=== PATIENT | male | born 1990 | race Hispanic/Latino ===

== ENCOUNTER → 2022-10-27 09:07 | Outpatient (CLI) | payer OTHER, SELFPAY ==
--- NOTE | ~2022-10-27 | XR_ITS ---
EXAMINATION:XR cervical spine 4-5V DATE: 10/27/2022 09:28 INDICATION: Neck pain TECHNIQUE: AP, lateral, lateral swimmers and odontoid views of the cervical spine are provided. COMPARISON: None FINDINGS: There is straightening of the cervical spine which can be positional or due to muscular spa sm. Alignment is normal. The odontoid process is intact. No fracture is identified. Vertebral body he ights and disk spaces are normal. Prevertebral soft tissues are normal. IMPRESSION: 1. No acute osseous abnormality. Reviewed, dictated and finalized at location B.
== END ==
PROVIDERS: PCP Emergency Medicine; Visit Provider Emergency Medicine
DX: R20.2 Paresthesia of skin (principal)
CPT/HCPCS: 72050

== ENCOUNTER 2023-09-04 16:29 | Emergency (ER) | payer OTHER, SELFPAY ==
--- NOTE | ~2023-09-04 | XR_ITS ---
EXAMINATION: XR tibia fibula RT 2V DATE: 09/04/2023 18:37 INDICATION: Right lower leg injury. TECHNIQUE: 2 views of right tibia and fibula on 3 radiographs were obtained. COMPARISON: Radiographs at 4:50 PM FINDINGS: Bone alignment is normal. No fracture. Joint spaces are normal. There is soft tissue swelli ng anterior to the tibial diaphysis. IMPRESSION: 1. No fracture. Reviewed, dictated and finalized at location E. IMPRESSION: 1. No fracture.
--- NOTE | ~2023-09-04 | XR_ITS ---
XR tibia fibula RT 2V 09/04/2023 16:57 Indication: Right leg deformity Procedure: 3 views right tibia/fibula Comparison: No prior studies for comparison. Findings: No fracture, subluxation or dislocation. There is anatomic alignment. No focal soft tissue abnormality. No foreign bodies. Impression: 1: No acute bone or joint abnormality. Reviewed, dictated and finalized at location A. Impression: 1: No acute bone or joint abnormality.
[2023-09-04 16:35] VITALS: BP 166/114; PULSE 118; RESP 20; TEMP 36.9; O2SAT 100
[2023-09-04] MEDS: ONDANSETRON INJ 4 MG/2 ML VIAL IV PUSH (16:46)
[2023-09-04] MEDS: MORPHINE SULFATE (*CRX) 4 MG/ML INJ IV PUSH ×2 (16:46→19:33)
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
[2023-09-04 17:07] LABS: Basophils Absolute Auto 0.1 K/mm3 (0.0-0.1); Basophils Percent Auto 0.6 % (0.2-1.2); Eosinophils Percent Auto 0.4 % (0-4.4); Hematocrit 49.4 % (42.0-52.0); Hemoglobin 17.2 g/dL (14.0-18.0); Immature Granulocyte Absolute 0.03 K/mm3 (0.00-0.031); Immature Granulocyte Percent A 0.3 % (0-0.5); Lymphocytes Absolute Auto 3.16 K/mm3 (0.9-3.2); Mean Corpuscular HGB Conc 34.8 g/dl (32-36); Mean Corpuscular Hemoglobin 31.6 pg (26-34); Mean Corpuscular Volume 90.6 fl (80-100); Mean Platelet Volume 9.1 fl (7.4-10.4); Monocytes Absolute Auto 0.7 K/mm3 (0.1-0.6); Monocytes Percent Auto 6.6 % (2.6-8.5); Neutrophils Absolute Auto 6.9 K/mm3 (1.3-6.7); Neutrophils Percent Auto 63.1 % (45.5-73.1); Platelet Count Result 306 k/mm3 (150-375); Red Blood Count 5.45 M/mm3 (4.6-6.20); Red Cell Distribution Width 12.6 % (11.5-14.5); White Blood Count 10.9 K/mm3 (4.5-10.0)
[2023-09-04 17:08] VITALS: BP 153/101; PULSE 98; RESP 14; TEMP 36.6; O2SAT 99
[2023-09-04 17:24] LABS: Lactic Acid Reflex 3.5 mmol/L (0.7-2.0)
[2023-09-04 17:25] LABS: Ethanol 275 mg/dL (<10)
[2023-09-04 17:26] LABS: Prothrombin Time 13.2 Seconds (11.1-14.7)
[2023-09-04 17:27] LABS: Partial Thromboplastin Time 28.2 Seconds (22.3-36.8)
[2023-09-04 17:28] LABS: Anion Gap 18 mmol/L (4-12); Blood Urea Nitrogen 10 mg/dL (9-20); Calcium 9.7 mg/dL (8.4-10.2); Carbon Dioxide 22 mmol/L (22-30); Chloride 104 mmol/L (98-107); Creatine Kinase 290 U/L (55-170); Estimated CRCL calculation 84 ml/min; Estimated Glomerular Filt Rate > 60; Glucose 120 mg/dL (65-110); Potassium 3.8 mmol/L (3.4-5.0); Sodium 144 mmol/L (137-145)
[2023-09-04 17:33] VITALS: BP 124/52; PULSE 107; RESP 23; TEMP 36.6; O2SAT 97
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
--- NOTE | 2023-09-04 18:27 | PC.NURSE ---
Dr. Stafford drained hematoma to right ponce. Pt tolerated well. Right lower leg elevated on x3 pillows
[2023-09-04 19:31] VITALS: BP 138/104
[2023-09-04 20:03] LABS: Reflex Lactic Acid Yes or No Add Lactic
[2023-09-04 20:31] VITALS: BP 120/86; PULSE 103; RESP 21; O2SAT 100
--- NOTE | 2023-09-04 20:40 | PM.IMHP ---
H&P: HPI History of Present Illness Date/Time: 09/04/23 20:40 Meds Home Medications and Allergies Allergies Allergy/AdvReac Type Severity Reaction Status Date / Time No Known Allergies Allergy Unverified 01/04/21 16:29 Vital Signs Vital Signs - 24 hr 09/04/23 16:35 09/04/23 17:08 09/04/23 17:33 Temperature 98.5 F 97.9 F 97.8 F Pulse Rate 118 H 98 107 H Respiratory Rate 20 14 23 H Blood Pressure 166/114 H 153/101 H 124/52 L Pulse Oximetry 100 99 97 Oxygen Delivery Room Air H&P: Results Labs Labs: Short CBC 09/04/23 Range/Units 16:57 WBC 10.9 H (4.5-10.0) K/mm3 Hgb 17.2 (14.0-18.0) g/dL Hct 49.4 (42.0-52.0) % Plt Count 306 (150-375) k/mm3 BMP 09/04/23 16:57 Sodium 144 Potassium 3.8 Chloride 104 Carbon Dioxide 22 BUN 10 Creatinine 1.20 Glucose 120 H Calcium 9.7 Cardiac Enzymes 09/04/23 09/04/23 Range/Units 16:57 16:57 Total Creatine Kinase 290 H Cancelled (55-170) U/L
[2023-09-04 21:05] LABS: Lactic Acid 2.1 mmol/L (0.7-2.0)
--- NOTE | 2023-09-04 21:08 | PC.NURSE ---
After calling report on patient, this RN went to medicate patient and send him to 3rd med/surg. Patient stated his mother left and he had someone waiting outside to pick him up and he wanted to leave. This RN made Dr. Fox aware.
--- NOTE | 2023-09-04 21:22 | PC.NURSE ---
This RN, Dr. Fox, and EDT Arlette present in the room while Dr. Fox explained to patient the benefits of staying and risks of signing out AMA. Patient states he does not care and will take care of the wounded leg at home. States he will come back if the pain worsens or the wound has any signs of infection. Patient signed AMA form and was able to walk out of this ED.
== END 2023-09-04 21:28 | disposition left against medical advice (07) ==
LOC: ANHED 18:35 → ANH3MEDSUR 21:06
PROVIDERS: Emergency Provider Emergency Medicine; PCP Emergency Medicine
DX: S80.11XA Contusion of right lower leg, initial encounter (principal); S84.01XA Injury of tibial nerve at lower leg level, right leg, initial encounter; W21.11XA Struck by baseball bat, initial encounter
CPT/HCPCS: 10160; 36415; 73590; 80048; 80307; 82550; 83605; 85025; 85610; 85730; 96374; 96375; 96376; 99284; J2270; J2405

== ENCOUNTER 2023-09-06 16:01 | Observation (INO) | payer OTHER, SELFPAY ==
[2023-09-06] VITALS (14 sets, daily range): BP systolic 122–158; BP diastolic 73–101; PULSE 101–134; RESP 19–35; TEMP 37.1; O2SAT 98–100
--- NOTE | ~2023-09-06 | MR_ITS ---
EXAMINATION: MR lower leg RT wo/w con DATE: 09/07/2023 14:59 INDICATION: Right lower leg hematoma TECHNIQUE: Magnetic resonance imaging (MRI) of the right lower leg was performed without and with 17 mL Multihance intravenous contrast. Sequences included axial T1-weighted FS FSE, axial, sagittal and coronal T1-weighted FSE and fluid sensitive FSE STIR and postcontrast T1-weighted FS FSE. The contral ateral left lower leg is included on the coronal imaging. COMPARISON: Radiographs dated 09/04/23 FINDINGS: There is a 4.6 x 2.6 x 6.9 cm complex loculated nonenhancing fluid collection positioned along the an teromedial margin of the mid tibial diaphysis. There is heterogeneous increased internal T1 signal co nsistent with blood and reported history of hematoma. Small amount of surrounding subcutaneous edema. Bone alignment is normal. Normal marrow signal throughout with no fracture, reactive edema or pathol ogic marrow replacing process. There is normal and symmetric muscle bulk and signal throughout both c gill. IMPRESSION: 1. 6.9 x 4.6 x 2.6 cm subcutaneous hematoma along the anteromedial margin of the right mid tibial daria physis. Reviewed, dictated and finalized at location B. IMPRESSION: 1. 6.9 x 4.6 x 2.6 cm subcutaneous hematoma along the anteromedial margin of th e right mid tibial diaphysis.
--- NOTE | ~2023-09-06 | XR_ITS ---
[[id number] ] INDICATION: Chest pain TECHNIQUE: Frontal projection of the upper left ribs, frontal projection of the lower left ribs, obli que projection of all the left ribs, frontal inspiratory chest x-ray for interpretation. FINDINGS: There are no displaced rib fractures identified. There are no soft tissue abnormality see n. The lungs are clear. IMPRESSION: 1:No acute displaced rib fractures. Reviewed, dictated and finalized at location A.
--- NOTE | ~2023-09-06 | CT_ITS ---
EXAMINATION: CT BRAIN W/O DATE: 09/06/2023 16:50 INDICATION: Head injury after fall TECHNIQUE: Computed tomography (CT) of the head was performed without intravenous contrast. The dose- length product was 1362.00 mGy-cm. Automated exposure control and iterative reconstruction technique were employed. COMPARISON: No prior studies for comparison. FINDINGS: Normal brain parenchymal volume for age. Normal dhaliwal-white differentiation. No acute intrac ranial hemorrhage, infarction, mass or mass effect. No ventriculomegaly or midline shift. Midline sagittal images demonstrate a normal corpus callosum, c raniovertebral junction and sella turcica. Basilar cisterns are patent. Paranasal sinuses and mastoids are pneumatized. No depressed skull fractures. IMPRESSION: 1. No acute intracranial abnormality. Reviewed, dictated and finalized at location A.
--- NOTE | ~2023-09-06 | XR_ITS ---
EXAMINATION: XR hip RT 2V w AP pelvis DATE: 09/08/2023 08:36 INDICATION: Right hip pain post fall TECHNIQUE: Anteroposterior view of the pelvis and anteroposterior and frog-leg lateral views of the r ight hip were obtained. COMPARISON: None. FINDINGS: Alignment is normal. No fracture or suspected avascular necrosis. Bilateral hip and sacroiliac joint spaces appear normal. There is bilateral decreased femoral head/neck offset which could predispose to wards cam-type femoral acetabular impingement. Soft tissues are unremarkable. IMPRESSION: 1. No acute osseous abnormality at the right hip or pelvis. Reviewed, dictated and finalized at location A.
--- NOTE | ~2023-09-06 | CT_ITS ---
EXAMINATION: CT cervical spine wo con DATE: 09/06/2023 16:50 INDICATION: Head injury. TECHNIQUE: Computed tomography (CT) of the cervical spine was performed without intravenous contrast. Automated exposure control and iterative reconstruction technique were employed. The dose-length pro duct was 1057.92 mGy-cm. COMPARISON: None FINDINGS: There is 3 degrees dextrocurvature of cervical spine. Vertebral body heights and interverte bral disc heights are normal. The following disc levels are specifically discussed: C2-C3: There is no uncovertebral joint osteoarthritis. There is mild bilateral facet joint osteoarthr itis. There is no neural foraminal stenosis. There is no central canal stenosis. C3-C4: There is mild left uncovertebral joint osteoarthritis. There is no facet joint osteoarthritis. There is mild left neural foraminal stenosis. There is no central canal stenosis. C4-C5: There is no uncovertebral joint osteoarthritis. There is no facet joint osteoarthritis. There is no neural foraminal stenosis. There is no central canal stenosis. C5-C6: There is no uncovertebral joint osteoarthritis. There is no facet joint osteoarthritis. There is no neural foraminal stenosis. There is no central canal stenosis. C6-C7: There is no uncovertebral joint osteoarthritis. There is mild bilateral facet joint osteoarthr itis. There is no neural foraminal stenosis. There is no central canal stenosis. C7-T1: There is no uncovertebral joint osteoarthritis. There is severe bilateral facet joint osteoart hritis. There is mild bilateral neural foraminal stenosis. There is no central canal stenosis. IMPRESSION: 1. No fracture. 2. Mild cervical spondylosis. Reviewed, dictated and finalized at location A.
--- NOTE | ~2023-09-06 | XR_ITS ---
EXAMINATION: XR tibia fibula LT 2V DATE: 09/06/2023 16:52 INDICATION: Left lower leg pain. Fall. TECHNIQUE: 2 views of left tibia and fibula on 3 radiographs were obtained. COMPARISON: None. FINDINGS: Bone alignment is normal. No fracture. Joint spaces are normal. No knee joint effusion. The re is soft tissue swelling of the ponce. IMPRESSION: 1. No fracture. Reviewed, dictated and finalized at location A. IMPRESSION: 1. No fracture.
--- NOTE | 2023-09-06 16:20 | ED.FALL ---
HPI - Fall General Chief Complaint: Fall <Tyrese Welsh APRN - Last Filed: 09/06/23 18:53> Stated Complaint: R. arm numbness <Tyrese Welsh APRN - Last Filed: 09/06/23 18:53> Time Seen by Provider: 09/06/23 16:15 <Tyrese Welsh APRN - Last Filed: 09/06/23 18:53> History of Present Illness HPI Narrative: 33-year-old male presents to the emergency room for evaluation of injuries sustained in fall. Patient was seen yesterday here for right leg injury. Patient states that he fell down 3 steps yesterday striking his right ponce on a stair. Patient was reporting pain in the ponce with numbness in his foot. Per dL note, imaging of the right ponce showed no acute fracture. Orthopedics is at the bedside to perform a hematoma drainage. Patient left AMA prior to completion of evaluation and treatment Patient presents today with unresolved pain of the right ponce, unable to use his right leg. Pain in his right forearm. Numbness and tingling in his right hand. It is clearly intoxicated. Patient states that he has had at least a 12 pack of beer prior to arrival. Patient states that he fell again today striking his face. Patient denies any LOC.. <Tyrese Welsh APRN - Last Filed: 09/06/23 18:53> Related Data Home Medications: Home Medications Medication Instructions Recorded Confirmed Biktarvy 1 tablet PO DAILY 09/07/23 09/07/23 atorvastatin 10 mg tablet 10 mg PO DAILY 09/07/23 09/07/23 <Tyrese Welsh APRN - Last Filed: 09/06/23 18:53> Allergies/Adverse Reactions: Allergies Allergy/AdvReac Type Severity Reaction Status Date / Time No Known Allergies Allergy Verified 09/07/23 00:24 <Tyrese Welsh APRN - Last Filed: 09/06/23 18:53> Review of Systems Review of Systems: CONSTITUTIONAL: Denies fever, chills, or sweats. EYES: Denies visual changes, redness, or discharge. ENT: Denies rhinorrhea, congestion, sore throat, or otalgia. CARDIOVASCULAR: Denies chest pain, palpitations, or edema. RESPIRATORY: Denies cough or dyspnea. GASTROINTESTINAL: Denies abdominal pain, nausea, vomiting, or diarrhea. GENITOURINARY: Denies dysuria or hematuria. SKIN: Hematoma to right ponce with significant surrounding ecchymosis MUSCULOSKELETAL: Denies back pain, joint pain, or myalgia. NEUROLOGIC: Reports numbness and tingling right hand PSYCHIATRIC: Denies anxiety or depression. <Tyrese Welsh APRN - Last Filed: 09/06/23 18:53> [facility] Social History Social History: Social History Smoking packs per day: 1 Smoking cigarettes per day: 20.0 Years smoked: 1 Smoking pack-years: 1.00 Smoking status: Former smoker Tobacco type: cigarettes Alcohol intake: current Drinks per week: 60 Substance use type: marijuana Last use: 09/06/2023 Do You Feel Safe in your Home?: Yes Lack of Transportation: No Lack of Food: Never True Current Housing: I Have Housing Concerned About Future Housing: No Difficulty Paying Gas/Electric Bills: No Difficulty Paying for Meds: No Currently Unemployed: No Education: High School Diploma/GED Difficulty w/ Childcare or Family Care: No Spiritual care concerns: No <Tyrese eWlsh, FACULTY MEMBER - Last Filed: 09/06/23 18:53> Exam Narrative: GENERAL: Patient is a poor historian, smells of ETOH and appears clinically intoxicated HEAD: Normocephalic, atraumatic. EYES: Conjunctivae normal, PERRLA and EOMI. ENT: External nose normal, Nares clear, no rhinorrhea or epistaxis. Mucous membranes moist. Oropharynx without tonsillar hypertrophy exudate or other lesions. External ears normal, bilateral TMs normal bilaterally CHEST: Clear to auscultation. Labored breathing. +TTP left anterior chest wall HEART: Regular rhythm tachycardia BACK: No midline cervical/thoracic/lumbar tenderness, step-offs, bony abnormality; FROM EXTREMITIES: RLE: obvious large hematoma anterior lower leg wi
[2023-09-06] MEDS: MORPHINE SULFATE (*CRX) 4 MG/ML INJ IV PUSH (16:33)
[2023-09-06 16:34] LABS: Basophils Absolute Auto 0.1 K/mm3 (0.0-0.1); Basophils Percent Auto 0.7 % (0.2-1.2); Eosinophils Percent Auto 0.1 % (0-4.4); Hemoglobin 16.2 g/dL (14.0-18.0); Immature Granulocyte Absolute 0.01 K/mm3 (0.00-0.031); Immature Granulocyte Percent A 0.1 % (0-0.5); Lymphocytes Absolute Auto 4.05 K/mm3 (0.9-3.2); Lymphocytes Percent Auto 48.7 % (18.3-44.2); Mean Corpuscular Volume 88.8 fl (80-100); Monocytes Absolute Auto 0.7 K/mm3 (0.1-0.6); Monocytes Percent Auto 7.9 % (2.6-8.5); Neutrophils Absolute Auto 3.5 K/mm3 (1.3-6.7); Neutrophils Percent Auto 42.5 % (45.5-73.1); Platelet Count Result 289 k/mm3 (150-375); Red Blood Count 5.07 M/mm3 (4.6-6.20); Red Cell Distribution Width 12.6 % (11.5-14.5); White Blood Count 8.3 K/mm3 (4.5-10.0)
[2023-09-06 16:44] LABS: Ethanol 233 mg/dL (<10)
[2023-09-06 16:51] LABS: Alanine Aminotransferase 39 U/L (6-50); Albumin Level 5.3 g/dL (3.5-5.1); Alkaline Phosphatase 91 U/L (38-126); Anion Gap 17 mmol/L (4-12); Aspartate Amino Transferase 53 U/L (17-59); Bilirubin,Total 0.8 mg/dL (0.2-1.3); Blood Urea Nitrogen 9 mg/dL (9-20); Calcium 9.3 mg/dL (8.4-10.2); Carbon Dioxide 18 mmol/L (22-30); Chloride 107 mmol/L (98-107); Estimated Glomerular Filt Rate > 60; Glucose 111 mg/dL (65-110); Potassium 4.1 mmol/L (3.4-5.0); Sodium 142 mmol/L (137-145)
[2023-09-06] MEDS: SODIUM CHLORIDE 0.9% IV 1,000 ML 999 ML IV CONT ×2 (16:52→19:09)
[2023-09-06] MEDS: ONDANSETRON INJ 4 MG/2 ML VIAL IV PUSH (16:52)
[2023-09-06] MEDS: THIAMINE HCL 200 MG/2 ML VIAL 100 MG IV PUSH (17:42)
[2023-09-06] MEDS: SODIUM CHLORIDE 0.9% IV 1,000 ML 150 ML IV CONT (18:07)
[2023-09-06] MEDS: fentaNYL CITRATE INJ (*CRX) 100 MCG/2 ML VIAL (18:08)
--- NOTE | 2023-09-06 18:08 | PC.NURSE ---
verbal orders given by Candido Keith NP, at 1800 for 50mcg fentanyl IVP to be given.
--- NOTE | 2023-09-06 18:15 | ECG_ITS ---
SEE SCANNED COPY FOR CONFIRMED REPORT MTDD
--- NOTE | 2023-09-06 18:24 | PC.NURSE ---
While BEHAVIORAL SPECIALIST and this RN at bedside at 1800, pt began complaining of L sided chest pain. EKG ordered and performed.
[2023-09-06] MEDS: LORazepam INJ (*CRX) 2 MG/ML VIAL 1 MG IV PUSH (18:34)
[2023-09-06 19:11] LABS: Troponin I < 0.012 ng/mL (0.000-0.034)
[2023-09-06 19:37] LABS: Lactic Acid Reflex 2.1 mmol/L (0.7-2.0)
[2023-09-06 20:35] LABS: Anion Gap 8 mmol/L (4-12); Blood Urea Nitrogen 8 mg/dL (9-20); Calcium 7.3 mg/dL (8.4-10.2); Carbon Dioxide 21 mmol/L (22-30); Chloride 112 mmol/L (98-107); Estimated Glomerular Filt Rate > 60; Glucose 98 mg/dL (65-110); Potassium 3.8 mmol/L (3.4-5.0); Sodium 141 mmol/L (137-145)
[2023-09-06 20:43] LABS: Amphetamine Screen Urine Negative (Negative); Barbiturate Screen Urine Negative (Negative); Benzodiazepines Screen Urine Negative (Negative); Cannabinoid Screen Urine Positive (Negative); Cocaine Screen Urine Negative (Negative); Methadone Screen Urine Negative (Negative); Opiate Screen Urine Positive (Negative); Phencyclidine Screen Urine Negative (Negative)
[2023-09-06 20:46] LABS: Appearance Urine Clear (Clear); Bacteria Urine None Seen /hpf; Bilirubin Urine Negative (Negative); Blood Urine Negative (Negative); Color Urine Yellow (Yellow); Glucose Urine UA Negative (Negative); Ketones Urine 1+ mg/dL (Negative); Leukocyte Esterase Ur Negative LEU/UL (Negative); Nitrate Urine Negative (Negative); Non Pathogenic Casts 0-2; Protein Urine Trace mg/dL (Negative); RBC Urine 0-2 /hpf (0-2); Specific Grav Ur 1.019 (1.001-1.035); Squamous Epithelial Cell Urine None Seen /hpf (Few); WBC Urine 0-5 /hpf (0-3)
[2023-09-06 20:58] LABS: Add Urine Microscopic? YES
[2023-09-06 22:26] LABS: Reflex Lactic Acid Yes or No Add Lactic
--- NOTE | 2023-09-06 23:07 | PC.NURSE ---
pt care and report given to PAWEL Koehler. all questions answered.
[2023-09-06 23:19] LABS: Lactic Acid 2.7 mmol/L (0.7-2.0)
--- NOTE | 2023-09-06 23:41 | PC.NURSE ---
Pt given sandwich, pretzels, pudding, and water.
[2023-09-07] VITALS: BP 160/90; PULSE 111; RESP 19; TEMP 37.1; O2SAT 99; BMI 30.7
--- NOTE | 2023-09-07 00:08 | ADMGEN ---
This patient, Jose Angel Marie, was admitted to [facility] Surg Room 316-01. Patient/family oriented to hospital policies and general routines including ID bracelet, bed and alarms, visiting hours, pain management, procedures, bathroom and other care routines, personal items, smoking policy, room service/diet, and visiting hours. Information on how to activate the Rapid Response Team has been discussed. Patient/Family are encouraged to report perceived risks to care and to ask questions if they do not understand what they are told or what they should do.
[2023-09-07] MEDS: KETOROLAC 30 MG/ML VIAL (*BKC) IV PUSH (00:09)
[2023-09-07] MEDS: SODIUM CHLORIDE 0.9% IV 1,000 ML 125 ML IV CONT ×2 (00:11→09:20)
[2023-09-07 00:12] VITALS: BMI 30.8
[2023-09-07] MEDS: chlordiazePOXIDE (*CRX) 25 MG CAPSULE 50 MG PO ×4 (05:16→21:55)
[2023-09-07 05:49] VITALS: BP 151/81; PULSE 85; RESP 14; TEMP 36.5; O2SAT 99
[2023-09-07 05:51] LABS: Glucose Point of Care 87 mg/dl (65-105)
[2023-09-07] MEDS: ATORVASTATIN 10 MG TABLET PO (09:10)
[2023-09-07] MEDS: THIAMINE HCL 200 MG/2 ML VIAL 100 MG IV PUSH (09:11)
--- NOTE | 2023-09-07 11:13 | PM.IMPN ---
Subjective Date/time seen: 09/07/23 11:13 Objective Data Vital Signs Vital Signs: Vital Signs - 24 hr 09/06/23 16:04 09/06/23 16:34 09/06/23 17:00 Temperature 98.8 F Pulse Rate 134 H 110 H 104 H Respiratory Rate 28 H 29 H 28 H Blood Pressure 137/101 H 158/92 H 126/95 H Pulse Oximetry 100 100 100 Oxygen Delivery Room Air Room Air 09/06/23 17:30 09/06/23 17:45 09/06/23 18:16 Temperature Pulse Rate 106 H 115 H 115 H Respiratory Rate 27 H 27 H 35 H Blood Pressure 141/88 H 134/82 145/96 H Pulse Oximetry 99 98 100 Oxygen Delivery 09/06/23 18:31 09/06/23 18:46 09/06/23 19:01 Temperature Pulse Rate 113 H 120 H 124 H Respiratory Rate 34 H 26 H 20 Blood Pressure 154/93 H 129/78 122/73 Pulse Oximetry 100 98 99 Oxygen Delivery 09/06/23 20:46 09/06/23 21:01 09/06/23 21:46 Temperature Pulse Rate 117 H 109 H 111 H Respiratory Rate 23 H 21 H 20 Blood Pressure 122/81 130/85 135/91 H Pulse Oximetry 100 100 100 Oxygen Delivery 09/06/23 22:01 09/06/23 23:24 09/07/23 00:12 Temperature Pulse Rate 101 H 106 H Respiratory Rate 19 20 Blood Pressure 156/94 H 138/95 H Pulse Oximetry 100 99 Oxygen Delivery Room Air 09/07/23 00:00 09/07/23 05:49 Temperature 98.7 F 97.7 F Pulse Rate 111 H 85 Respiratory Rate 19 14 Blood Pressure 160/90 H 151/81 H Pulse Oximetry 99 99 Oxygen Delivery Intake/Output Intake/Output: Intake & Output 09/04/23 09/05/23 09/06/23 09/07/23 23:59 23:59 23:59 23:59 Intake Total 3000 1740 Balance 3000 1740 Meds/Results Medications: Active Medications Generic Name Dose Route Start Last Admin Trade Name Freq PRN Reason Stop Dose Admin Atorvastatin Calcium 10 mg 09/07/23 09:00 09/07/23 09:10 Atorvastatin 10 Mg Tablet PO 10 mg DAILY SAM Administration Chlordiazepoxide HCl 50 mg 09/07/23 06:00 09/07/23 05:16 Chlordiazepoxide (*Crx) 25 Mg Capsule PO 50 mg Q6HR SAM Administration Hydromorphone HCl 0.5 mg 09/06/23 23:08 Hydromorphone Hcl Inj (*Crx) 1 Mg/Ml Syr IV PUSH Q4H PRN Pain Rated 7-10 Sodium Chloride 1,000 mls @ 125 mls/hr 09/06/23 23:10 09/07/23 09:20 Normal Saline Iv IV CONT 125 mls/hr .Q8H SAM Administration Dextrose/Sodium Chloride 1,000 mls @ 125 mls/hr 09/07/23 01:40 Dextrose 5% Sodium Chloride 0.45% IV CONT .Q8H SAM Ketorolac Tromethamine 30 mg 09/06/23 23:08 09/07/23 00:09 Ketorolac 30 Mg/Ml Vial (*Bkc) IV PUSH 09/11/23 23:07 30 mg Q6H PRN Administration Pain Rated 4-6 Lorazepam 2 mg 09/07/23 01:38 Lorazepam Inj (*Crx) 2 Mg/Ml Vial IV PUSH Q4H PRN CIWA 8-15 Nonform Biktarvy ( 1 tablet 09/07/23 09:00 09/07/23 10:05 Bictegravir/ PO 10/07/23 08:59 1 tablet Emtricitabine/ DAILY SAM Administration Tenofovir) Tablet) Ondansetron HCl 4 mg 09/06/23 23:08 Ondansetron Inj 4 Mg/2 Ml Vial IV PUSH Q4H PRN Nausea Ondansetron HCl 4 mg 09/07/23 01:38 Ondansetron Inj 4 Mg/2 Ml Vial IV PUSH Q6H PRN Nausea And Vomiting Thiamine HCl 100 mg 09/07/23 09:00 09/07/23 09:11 Thiamine Hcl 200 Mg/2 Ml Vial IV PUSH 100 mg DAILY SAM Administration Radiology Results: ITS Impressions Head CT 09/06/23 16:51 IMPRESSION: 1. No acute intracranial abnormality. Cervical Spine CT 09/06/23 16:52 IMPRESSION: 1. No fracture. 2. Mild cervical spondylosis. Tibia/Fibula X-Ray 09/06/23 16:55 IMPRESSION: 1. No fracture. Ribs w/Chest X-Ray 09/06/23 19:23 IMPRESSION: 1:No acute displaced rib fractures. Labs Labs: Laboratory Results - last 24 hr 09/06/23 09/06/23 09/06/23 16:26 16:28 19:24 WBC 8.3 RBC 5.07 Hgb 16.2 Hct 45.0 MCV 88.8 MCH 32.0 MCHC 36.0 RDW 12.6 Plt Count 289 MPV 9.0 Immature Gran % (Auto) 0.1 Neut % (Auto) 42.5 L Lymph % (Auto) 48.7 H [place] % (Auto) 7.9 Eos % (Auto) 0.1 Baso % (Auto) 0.7
--- NOTE | 2023-09-07 11:30 | PM.CNOR ---
Assessment and Plan Assessment and plan (1) Injury of right tibial nerve: Code(s): S84.01XA - Injury of tibial nerve at lower leg level, right leg, initial encounter Status: Acute Assessment and Plan: Patient has contusion of his tibia with a hematoma. He also has an injury to his tibial nerve. The tibial nerve appears to be getting little better based on Dr. Yohan dee. However he is unable bear weight according to the patient. He is also undergoing alcohol withdrawal this time. Will get and recommended an MRI scan for an. Will follow along discussed. (2) Hematoma of right lower leg: Code(s): S80.11XA - Contusion of right lower leg, initial encounter Status: Acute History of Present Illness HPI Consult date: 09/07/23 Chief complaint: Fall, Right leg hematoma, EtOH abouse Review of Systems Review of Systems: CONSTITUTIONAL: Denies fever, chills, or sweats. EYES: Denies visual changes, redness, or discharge. ENT: Denies rhinorrhea, congestion, sore throat, or otalgia. CARDIOVASCULAR: Denies chest pain, palpitations, or edema. RESPIRATORY: Denies cough or dyspnea. GASTROINTESTINAL: Denies abdominal pain, nausea, vomiting, or diarrhea. GENITOURINARY: Denies dysuria or hematuria. SKIN: Hematoma to right ponce with significant surrounding ecchymosis MUSCULOSKELETAL: Denies back pain, joint pain, or myalgia. NEUROLOGIC: Reports numbness and tingling right hand PSYCHIATRIC: Denies anxiety or depression. [facility] Social History Social History Smoking packs per day: 1 Smoking cigarettes per day: 20.0 Years smoked: 1 Smoking pack-years: 1.00 Smoking status: Former smoker Tobacco type: cigarettes Alcohol intake: current Drinks per week: 60 Substance use type: marijuana Last use: 09/06/2023 Do You Feel Safe in your Home?: Yes Lack of Transportation: No Lack of Food: Never True Current Housing: I Have Housing Concerned About Future Housing: No Difficulty Paying Gas/Electric Bills: No Difficulty Paying for Meds: No Currently Unemployed: No Education: High School Diploma/GED Difficulty w/ Childcare or Family Care: No Spiritual care concerns: No Meds Home Medications and Allergies Home Medications Medication Instructions Recorded Confirmed Type Biktarvy 1 tablet PO DAILY 09/07/23 09/07/23 History atorvastatin 10 mg tablet 10 mg PO DAILY 09/07/23 09/07/23 History Allergies Allergy/AdvReac Type Severity Reaction Status Date / Time No Known Allergies Allergy Verified 09/07/23 00:24 Vital Signs Vital Signs - 24 hr 09/06/23 16:04 09/06/23 16:34 09/06/23 17:00 Temperature 98.8 F Pulse Rate 134 H 110 H 104 H Respiratory Rate 28 H 29 H 28 H Blood Pressure 137/101 H 158/92 H 126/95 H Pulse Oximetry 100 100 100 Oxygen Delivery Room Air Room Air 09/06/23 17:30 09/06/23 17:45 09/06/23 18:16 Temperature Pulse Rate 106 H 115 H 115 H Respiratory Rate 27 H 27 H 35 H Blood Pressure 141/88 H 134/82 145/96 H Pulse Oximetry 99 98 100 Oxygen Delivery 09/06/23 18:31 09/06/23 18:46 09/06/23 19:01 Temperature Pulse Rate 113 H 120 H 124 H Respiratory Rate 34 H 26 H 20 Blood Pressure 154/93 H 129/78 122/73 Pulse Oximetry 100 98 99 Oxygen Delivery 09/06/23 20:46 09/06/23 21:01 09/06/23 21:46 Temperature Pulse Rate 117 H 109 H 111 H Respiratory Rate 23 H 21 H 20 Blood Pressure 122/81 130/85 135/91 H Pulse Oximetry 100 100 100 Oxygen Delivery 09/06/23 22:01 09/06/23 23:24 09/07/23 00:12 Temperature Pulse Rate 101 H 106 H Respiratory Rate 19 20 Blood Pressure 156/94 H 138/95 H Pulse Oximetry 100 99 Oxygen Delivery Room Air 09/07/23 00:00 09/07/23 05:49 Temperature 98.7 F 97.7 F Pulse Rate 111 H 85 Respiratory Rate 19 14 Blood Pressure 160/90 H 151/81 H Pulse Oximetry 99 99 Oxygen Delivery Exam Narrative: Tenderness to pa
[2023-09-07 11:46] LABS: Glucose Point of Care 96 mg/dl (65-105)
[2023-09-07] MEDS: LORazepam INJ (*CRX) 2 MG/ML VIAL 1 MG IV PUSH (12:14)
[2023-09-07] MEDS: DEXTROSE 5%/0.45% SOD CHL 1,000 ML 125 ML IV CONT ×2 (12:20→21:54)
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
[2023-09-07 14:00] VITALS: BP 132/91; PULSE 81; RESP 15; TEMP 36.4; O2SAT 100
[2023-09-07 21:16] VITALS: BP 153/94; PULSE 80; RESP 18; TEMP 36.7; O2SAT 99
--- NOTE | 2023-09-07 22:22 | PC.NURSE ---
Pt's family called, Matilda, wanting an update. I answered their questions. They kept asking when pt was going to be discharged. I explained that we were waiting on orthopedics plan and the results from the MRI to determine when pt will be discharged.
[2023-09-08 00:08] LABS: Glucose Point of Care 93 mg/dl (65-105)
[2023-09-08 05:42] VITALS: BP 143/88; PULSE 76; RESP 18; TEMP 36.6; O2SAT 99
[2023-09-08 05:42] LABS: Glucose Point of Care 100 mg/dl (65-105)
[2023-09-08] MEDS: chlordiazePOXIDE (*CRX) 25 MG CAPSULE 50 MG PO (05:42)
--- NOTE | 2023-09-08 08:05 | PM.PNORT ---
Progress Note: A&P Assessment and Plan (1) Hematoma of right lower leg: Code(s): S80.11XA - Contusion of right lower leg, initial encounter Status: Acute Assessment and Plan: Patient continues to have pain right leg. Noncompliant. Will check a hip x-ray. I can't really get him to move his hip. His MRI of his leg was unremarkable. I do not know why her. Fortunately his nerve function seems to be improving. (2) Injury of right tibial nerve: Code(s): S84.01XA - Injury of tibial nerve at lower leg level, right leg, initial encounter Status: Acute Subjective Subjective Date/Time Seen: 09/08/23 08:05 Principal diagnosis: Pain right. Review of Systems Review of Systems: CONSTITUTIONAL: Denies fever, chills, or sweats. EYES: Denies visual changes, redness, or discharge. ENT: Denies rhinorrhea, congestion, sore throat, or otalgia. CARDIOVASCULAR: Denies chest pain, palpitations, or edema. RESPIRATORY: Denies cough or dyspnea. GASTROINTESTINAL: Denies abdominal pain, nausea, vomiting, or diarrhea. GENITOURINARY: Denies dysuria or hematuria. SKIN: Hematoma to right ponce with significant surrounding ecchymosis MUSCULOSKELETAL: Denies back pain, joint pain, or myalgia. NEUROLOGIC: Reports numbness and tingling right hand PSYCHIATRIC: Denies anxiety or depression. Exam Narrative: Patient still uncooperative. We will move leg much. Appears to be painful only tibia. Although a moment removed to for me. His nerve function appears to be improving. Objective Data Vital Signs Vital Signs: Vital Signs - 24 hr 09/07/23 14:00 09/07/23 21:16 09/07/23 20:00 Temperature 97.5 F L 98.1 F Pulse Rate 81 80 Respiratory Rate 15 18 Blood Pressure 132/91 H 153/94 H Pulse Oximetry 100 99 Oxygen Delivery Room Air 09/08/23 05:42 Temperature 97.9 F Pulse Rate 76 Respiratory Rate 18 Blood Pressure 143/88 H Pulse Oximetry 99 Oxygen Delivery Intake/Output Intake/Output: Intake & Output 09/05/23 09/06/23 09/07/23 09/08/23 23:59 23:59 23:59 23:59 Intake Total 3000 5106.3 804.2 Output Total 1175 625 Balance 3000 3931.3 179.2 Meds/Results Medications: Active Medications Generic Name Dose Route Start Last Admin Trade Name Freq PRN Reason Stop Dose Admin Atorvastatin Calcium 10 mg 09/07/23 09:00 09/07/23 09:10 Atorvastatin 10 Mg Tablet PO 10 mg DAILY SAM Administration Chlordiazepoxide HCl 50 mg 09/07/23 06:00 09/08/23 05:42 Chlordiazepoxide (*Crx) 25 Mg Capsule PO 50 mg Q6HR SAM Administration Hydromorphone HCl 0.5 mg 09/06/23 23:08 Hydromorphone Hcl Inj (*Crx) 1 Mg/Ml Syr IV PUSH Q4H PRN Pain Rated 7-10 Sodium Chloride 1,000 mls @ 125 mls/hr 09/06/23 23:10 09/07/23 17:06 Normal Saline Iv IV CONT Not Given .Q8H SAM Dextrose/Sodium Chloride 1,000 mls @ 125 mls/hr 09/07/23 01:40 09/08/23 05:44 Dextrose 5% Sodium Chloride 0.45% IV CONT 125 mls/hr .Q8H SAM Infusion Ketorolac Tromethamine 30 mg 09/06/23 23:08 09/07/23 00:09 Ketorolac 30 Mg/Ml Vial (*Bkc) IV PUSH 09/11/23 23:07 30 mg Q6H PRN Administration Pain Rated 4-6 Lorazepam 1 mg 09/07/23 11:36 09/07/23 12:14 Lorazepam Inj (*Crx) 2 Mg/Ml Vial IV PUSH 1 mg Q4H PRN Administration Anxiety Nonform Biktarvy ( 1 tablet 09/07/23 09:00 09/07/23 10:05 Bictegravir/ PO 10/07/23 08:59 1 tablet Emtricitabine/ DAILY SAM Administration Tenofovir) Tablet) Ondansetron HCl 4 mg 09/06/23 23:08 Ondansetron Inj 4 Mg/2 Ml Vial IV PUSH Q4H PRN Nausea Ondansetron HCl 4 mg 09/07/23 01:38 Ondansetron Inj 4 Mg/2 Ml Vial IV PUSH Q6H PRN Nausea And Vomiting Thiamine HCl 100 mg 09/07/23 09:00 09/07/23 09:11 Thiamine Hcl 200 Mg/2 Ml Vial IV PUSH 100 mg DAILY SAM Administration Radiology Results: ITS Impressions Head CT 09/06/23 16:51 IMPRESSION: 1. No acute intracranial abnormali
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
[2023-09-08] MEDS: ATORVASTATIN 10 MG TABLET PO (09:04)
--- NOTE | 2023-09-08 09:30 | PCPTNOTE ---
RN stated pt was leaving AMA, watched pt leave with his mother, pt ambulating with crutches, pt appeared unsafe with gait, cancelling PT orders as pt is leaving the hospital
== END 2023-09-08 09:25 | disposition left against medical advice (07) ==
LOC: ANHED 23:16 → ANH3MEDSUR 23:40
PROVIDERS: Physician Assistant; Admitting Provider Internal Medicine; Emergency Provider Nurse Practitioner Family; PCP Emergency Medicine; Visit Provider Internal Medicine
DX: S84.01XA Injury of tibial nerve at lower leg level, right leg, initial encounter (principal); S80.11XA Contusion of right lower leg, initial encounter; M25.551 Pain in right hip; M79.662 Pain in left lower leg; W18.30XA Fall on same level, unspecified, initial encounter; F10.120 Alcohol abuse with intoxication, uncomplicated; Y90.7 Blood alcohol level of 200-239 mg/100 ml; F12.90 Cannabis use, unspecified, uncomplicated; Z87.891 Personal history of nicotine dependence; Z21 Asymptomatic human immunodeficiency virus [HIV] infection status; Z79.899 Other long term (current) drug therapy; Z53.29 Procedure and treatment not carried out because of patient's decision for other reasons
CPT/HCPCS: 36415; 70450; 71101; 72125; 73502; 73590; 73720; 80048; 80053; 80307; 81001; 82948; 83605; 84484; 85025; 93005; 96360; 96361; 96374; 96375; 99285; A9270; A9577; G0378; J1885; J2060; J2270; J2405; J3010; J3411; J7030

== ENCOUNTER 2023-11-07 14:38 | Emergency (ER) | payer OTHER, SELFPAY ==
--- NOTE | ~2023-11-07 | XR_ITS ---
XR foot LT min 3V Ordering provider: Jason Syed PA-C History: . L foot injury, THINKS HE STEPPED WRONG AT WORK SUNDAY . Comparison: None. FINDINGS: BONES: No acute fracture or dislocation. JOINT SPACES: Normal. No tarsal coalition. SOFT TISSUES: Normal. IMPRESSION: No acute osseous abnormality right foot. Reviewed, dictated and finalized at location A.
[2023-11-07 14:44] VITALS: BP 145/91; PULSE 81; RESP 16; TEMP 36.7; O2SAT 98
--- NOTE | 2023-11-07 14:45 | ED.GENADULT ---
[facility] - General Adult General Chief complaint: Extremity Injury, Lower Stated complaint: left foot injury 2 days ago Time Seen by Provider: 11/07/23 14:40 Source: patient Mode of arrival: ambulatory Limitations: no limitations History of Present Illness [facility] narrative: this is a 33-year-old male who presents to the ED for chief complaint of left foot injury that happened 2 days ago. Ambulating with crutches. States he sustained the injury while working at [employer]. Reports he was stepping on a button and had immediate pain to the left lateral foot. denies any further sites of pain or injury. Denies numbness or weakness. Related Data Home Medications Medication Instructions Recorded Confirmed Biktarvy 1 tablet PO DAILY 09/07/23 09/07/23 atorvastatin 10 mg tablet 10 mg PO DAILY 09/07/23 09/07/23 Allergies Allergy/AdvReac Type Severity Reaction Status Date / Time No Known Allergies Allergy Verified 11/07/23 14:39 Review of Systems Review of Systems: All systems as dictated in [facility] Social History Social History Smoking packs per day: 1 Smoking cigarettes per day: 20.0 Years smoked: 1 Smoking pack-years: 1.00 Smoking status: Former smoker Tobacco type: cigarettes Alcohol intake: current Drinks per week: 60 Substance use type: marijuana Last use: 09/06/2023 Do You Feel Safe in your Home?: Yes Lack of Transportation: No Lack of Food: Never True Current Housing: I Have Housing Concerned About Future Housing: No Difficulty Paying Gas/Electric Bills: No Difficulty Paying for Meds: No Currently Unemployed: No Education: High School Diploma/GED Difficulty w/ Childcare or Family Care: No Spiritual care concerns: No Exam Narrative: GENERAL: Well-appearing, well-nourished, and in no acute distress. HEAD: Normocephalic, atraumatic. EYES: PERRLA and EOMI. MSK: mild tenderness to the plantar foot near 5th toe. No bruising or deformity. SKIN: Warm, dry, no rash. NEURO: Alert and oriented x4. No focal deficits. PSYCH: Normal mood and affect. Medical Decision Making MDM Narrative Medical decision making narrative: This is a 33-year-old male who presents to the ED with chief complaint of left foot injury at work 2 days ago. Vitals are normal. Exam remarkable for the above. X-ray show no acute fractures in the foot. Presentation consistent with musculoskeletal strain. Pt will be discharged in stable condition. Return precautions given and supportive measures discussed. Pt is understanding and agreeable with plan for discharge and follow-up with PCP. Discharge Plan Discharge Clinical Impression: Strain of foot, left Patient Disposition: Home, Self-Care Condition: Stable Instructions: Antibiotic Form Additional Instructions: your exam and imaging today are reassuring overall. No fractures detected. Please follow-up with PCP. Continue with crutches as needed progress to weight-bearing as tolerated. Use Tylenol and ibuprofen regularly for pain control. If you have any new or worsening symptoms please return to the ER for further evaluation. Prescriptions: No Action atorvastatin 10 mg Tablet 10 mg PO DAILY Biktarvy 1 tablet tablet 1 tablet PO DAILY Follow-up/Referrals: Francesco Bashir MD [Primary Care Provider] - Stand Alone Forms: Work/School Release IP Time of Disposition: 15:22
== END 2023-11-07 15:57 | disposition home or self-care (01) ==
PROVIDERS: Emergency Provider Physician Assistant; PCP Emergency Medicine
DX: S96.912A Strain of unspecified muscle and tendon at ankle and foot level, left foot, initial encounter (principal); Z87.891 Personal history of nicotine dependence; X50.9XXA Other and unspecified overexertion or strenuous movements or postures, initial encounter
CPT/HCPCS: 73630; 99283

== ENCOUNTER 2024-09-15 20:11 | Emergency (ER) | payer OTHER, SELFPAY ==
--- NOTE | ~2024-09-15 | CT_ITS ---
EXAMINATION: CT soft tissue neck w con DATE: 09/15/2024 21:29 INDICATION: Throat pain. TECHNIQUE: Computed tomography (CT) of the neck was performed with 75 mL Omnipaque-350 intravenous co ntrast. Automated exposure control and iterative reconstruction technique were employed. The dose-aliyah gth product was 542.62 mGy-cm. COMPARISON: CT C-spine 09/06/2023 FINDINGS: Uvular edema. Mild bilateral palatine tonsil enlargement. No tonsillar abscess. The thyroid gland is unremarkable. The submandibular and parotid glands are symmetric. There is no cervical lymphadeno ángel. There are no masses identified. The superior mediastinum is unremarkable. The airway is unremarkable. Parapharyngeal and pre-glottic fat planes are preserved. Normal enhancing neck vess els. The orbits are unremarkable. Visualized sinuses and mastoid air cells are well aerated. Mil d motion artifact in the lungs. Bandlike atelectasis or scar in the superior segment of the right upp er lobe. Mild diffuse groundglass opacity in the upper lungs. There is cervical spondylosis. IMPRESSION: Uvular edema. Mild bilateral palatine tonsil enlargement. No abscess. Groundglass opacities in the upper lungs, correlate with respiratory symptoms. Consider edema, infect ion, or hypersensitivity in the differential. Reviewed, dictated and finalized at location K. IMPRESSION: Uvular edema. Mild bilateral palatine tonsil enlargement. No abscess. Groundglass opacities in the upper lungs, correlate with respiratory symptoms. Consider edema, infection, or hypersensitivity in the differential.
--- OUTSIDE RECORDS SUMMARY | 2024-09-15 20:14 | XMS_ITS | Data Portability ---
Author Organization [facility] Deana [facility] Address [address] [place] [address] Care Team Providers Care Subpoena Server Name Role Phone TAIWO HOLLAND Primary Care Provider Assessment No assessment recorded. Plan of Treatment Reminders Order Date Submit Date Provider Last Modified By Organization Details Last Modified Time Details Appointments None recorded. Lab lipid panel, serum 2023 JEANINE Ruby, [address], [place], [address], 05:10:44 CMP, serum or plasma 2023 JEANINE Ruby, [address], [address], [place], [address], 05:10:45 urinalysis, complete 2023 JEANINE RUBY, [address] [place] [address], [facility] [address], [place], [address], 02:09:18 RPR (rapid plasma reagin), serum 2023 024 JEANINE RUBY, [address] [place], [place] [address]mire[address] [place], [facility] [address], [place], [address], 4 05:10:47 Mycobacteri um tuberculosi s stimulated gamma interferon, qual, blood 2023 024 JEANINE RUBY, [address] [facility] [address], [address], [place], [address], 4 00:08:57 chlamydia trachomatis + neisseria gonorrhoeae + trichomonas vaginalis rRNA panel, JESSA+probe 2023 024 JEANINE [facility], [address] [place] [address] [place], [address], [place], [address], 4 05:10:43 HIV-1 RNA, quantitativ e, PCR, serum or plasma 2023 024 [email or web address] [facility], [address] [place], [place] [address]mireille [address], [address], [place], [address], 4 07:56:47 cd4 T-cells, blood 2023 024 JEANINE [facility], [address] [place] [address] [place], [address], [place], [address], 4 05:10:46 drug screen, urine 2023 024 [facility], [address] [place] [address] [place], [address], [place], [address], 4 07:56:47 Hepatitis C IgG Ab, qual, serum 2023 024 JEANINE [facility], [address] [place], [place] [address]mireille [place], [address], [place], [address], 4 05:10:42 CMP, serum or plasma 2023 024 clowryma [facility], [address], [address], [address], 4 11:51:28 urinalysis, complete 2023 024 clowryma [facility], [address], [address], [place], [address], 4 11:51:28 RPR (rapid plasma reagin), serum 2023 024 clowryma [facility], [address], [address], [place], [address], 4 11:51:28 Mycobacteri um tuberculosi s stimulated gamma interferon, qual, blood 2023 024 clowryma [facility], [address], [address], [place], [address], 4 11:51:28 chlamydia trachomatis + neisseria gonorrhoeae + trichomonas vaginalis rRNA panel, JESSA+probe 2023 024 clowryma [facility], [address], [address], [place], [address], 4 11:51:28 CMP, serum or plasma 2023 024 clowryma [facility], [address], [address], [place], [address], 4 11:51:28 HIV-1 RNA, quantitativ e, PCR, serum or plasma 2023 024 clowryma [facility], [address], [address], [place], [address], 4 11:51:28 cd4 T-cells, blood 2023 024 clowryma [facility], [address], [address], [place], [address], 4 11:51:29 drug screen, urine 2023 024 [facility], [address], [address], [place], [address], 4 11:51:29 Hepatitis C IgG Ab, qual, serum 2023 024 cloyma [facility], [address], [address], [place], [address], 4 11:51:29 CMP, serum or plasma 2023 024 [facility], [address], [address], [place], [address], 4 13:15:29 lipid panel, serum 2023 024 [facility], [address], [address], [place], [address], 4 13:15:28 CBC w/ auto diff 2023 024 [facility], [address], [address], [place], [address], 4 13:15:30 TSH + free T4, serum 2023 024 JEANINE Au, [address], [address], [place], [address], 4 13:15:27 HbA1c (hemoglobin A1c), blood 2023 024 JEANINE [facility], [address], [address], [place], [address], 4 13:15:30 chlamydia trachomatis + neisseria gonorrhoeae rRNA panel, JESSA+probe, nasopharynx 2023 024 JEANINEMICHAEL [facility], [address], [address], [place], [address], 4 03:08:41 HIV-1 RNA, quantitativ e, PCR, serum or plasma 2023 024 [facility], [address], [address], [place], [address], 4 20:09:21 cd4 T-cells, blood 2023 024 [facility], [address] [place] [address], [address], [place], [address], 4 03:08:43 RPR (rapid plasma reagin), serum 2023 024 [facility], [address] [place] [address], [address], [place], [address], 4 03:08:44 chlamydia trachomatis + neisseria gonorrhoeae + trichomonas vaginalis DNA panel, JESSA+probe, unspecified specimen 2023 024 [facility], [address] [place], [place] [address]mireille [place], [address], [place], [address], 4 03:08:41 CMP, serum or plasma 2023 024 [facility], [address] [place] [address], [address], [place], [address], 4 03:08:42 Referral None recorded. Procedures None recorded. Surgeries None recorded. Imaging None recorded. Medication Orders hydrochloro thiazide 12.5 mg tablet 2023 ELEVA [facility] #[id number], [address], [place], [place], [id number], 4 09:55:29 bupropion HCl XL 150 mg 24 hr tablet, extended release 2023 024 [facility]20907, [address] [place], [place], [id number], 4 09:10:01 doxycycline hyclate 200 mg tablet,roland yed release 2023 024 [facility] #15248, [address] [place], [place], [id number], 4 09:09:51 Biktarvy 50 mg-200 mg-25 mg tablet 2023 024 [facility] #[id number], [address] [place] [address], [id number], 4 14:35:50 lisinopril 40 mg tablet 2023 024 [facility] #78996, [address] [place], [place], [id number], 4 11:05:33 buspirone 5 mg tablet 2023 024 [facility] #67225, [address] [place], [place], [id number], 4 09:41:00 azithromyci n 500 mg tablet 2023 024 kbarbero Not available 4 10:38:06 ceftriaxone 500 mg solution for injection 2023 024 kbarbero Not available 4 10:38:09 doxycycline hyclate 200 mg tablet,roland yed release 2023 024 clowryma [facility] #49808, [address] [place], [place], [id number], 09:09:41 Biktarvy 50 mg-200 mg-25 mg tablet 2023 024 JEANINE [facility]) #[id number], [address] [place] [address], [id number], 11:45:29 Patient TargetsNo targets recorded. Patient Instructions Encounter Date Encounter Id Patient Instructions Last Modified By Organization Details Last Modified Time 08/14/2023 [id number] A healthy lifestyle: care instructions Not available 08/14/2023 14:48:17 Quitting Tobacco : Care Instructions Not available 08/14/2023 14:48:17 02/05/2024 [id number] A healthy lifestyle: care instructions [email or web address] Not available 02/05/2024 10:49:28 02/12/2024 [id number] A healthy lifestyle: care instructions Not available 02/12/2024 16:31:32 Quitting Tobacco : Care Instructions Not available 02/12/2024 16:31:32 Reason for Referral None Reported. Results Created Date Observation Date Name Description Value Unit Range Abnormal Flag Note LastModifiedBy Organization Detail LastModifiedTime 08/14/1908/15/2023 RNA, REAL TIME PCR (NON- GRAPH ) HIV-1 RNA by PCR <20 copie s/mL HIV-1 RNA detec debbie The repor table range for this assay is 20 to 10,00 0,000 copie s HIV-1 RNA/m L. Not Available [facility] ([facility]) [address] [facility], [place], [address], 08/15/2023 20:09:21 08/14/19 24 08/15/2023 RNA, REAL TIME PCR (NON- GRAPH ) log10 HIV-1 RNA TNP log10 copy/ mL Unabl e to calcu late resul t since non-n umeri c resul t obtai bartolo for compo nent test. Not Available [facility] ([facility]) [address] [facility], [place], [address], 08/15/2023 20:09:21 08/14/19 24 08/16/2023 CT, NG, TRICH VAG BY JESSA chlamydia by JESSA Negati ve negati ve Not Available [facility] ([facility]) [address] [place], [address], 08/17/2023 03:08:40 08/14/19 24 08/16/2023 CT, NG, TRICH VAG BY JESSA gonococcus by JESSA Negati ve negati ve Not Available [facility] ([facility]) [address] [place], [address], 08/17/2023 03:08:40 08/14/19 24 08/16/2023 CT, NG, TRICH VAG BY JESSA trich vag by JESSA Negati ve negati ve Not Available [facility] ([facility]) [address] [place], [address], 08/17/2023 03:08:40 08/14/19 24 08/16/2023 CT/GC JESSA, PHARY NGEAL C. trachomatis, JESSA, pharyn Negati ve negati ve Not Available [facility] ([facility]) [address] [place], [address], 08/17/2023 03:08:41 08/14/19 24 08/16/2023 CT/GC JESSA, PHARY NGEAL N. gonorrhoeae, JESSA, pharyn Positi ve negati ve abnormal Not Available [facility] ([facility]) [address] [place], [address], 08/17/2023 03:08:41 08/14/19 24 08/15/2023 COMP. METAB OLIC PANEL (14) glucose 94 mg/dL 70-99 Not Available [facility] ([facility]) [address] [place], [address], 08/17/2023 03:08:42 08/14/19 24 08/15/2023 COMP. METAB OLIC PANEL (14) BUN 18 mg/dL 6-20 Not Available [facility] ([facility]) [address] [facility] [place], [address], 08/17/2023 03:08:42 08/14/19 24 08/15/2023 COMP. METAB OLIC PANEL (14) creatinine 1.22 mg/dL 0.76-1 .27 Not Available [facility] ([facility]) [address] [facility] [place], [address], 08/17/2023 03:08:42 08/14/19 24 08/15/2023 COMP. METAB OLIC PANEL (14) eGFR 80 mL/mi n/1.7 3 >59 Not Available [facility] ([facility]) [address] [facility] [place], [address], 08/17/2023 03:08:42 08/14/19 24 08/15/2023 COMP. METAB OLIC PANEL (14) BUN/creatini ne ratio 15 9-20 Not Available [facility] ([facility]) [address] [facility] [place], [address], 08/17/2023 03:08:42 08/14/19 24 08/15/2023 COMP. METAB OLIC PANEL (14) sodium 140 mmol/ L 134-14 4 Not Available [facility] ([facility]) [address] [facility] [place], [address], 08/17/2023 03:08:42 08/14/19 24 08/15/2023 COMP. METAB OLIC PANEL (14) potassium 3.9 mmol/ L 3.5-5. 2 Not Available [facility] ([facility]) [address] [facility] [place], [address], 08/17/2023 03:08:42 08/14/19 24 08/15/2023 COMP. METAB OLIC PANEL (14) chloride 99 mmol/ L 96-106 Not Available [facility] ([facility]) [address] [place], [address], 08/17/2023 03:08:42 08/14/19 24 08/15/2023 COMP. METAB OLIC PANEL (14) carbon dioxide, total 24 mmol/ L Not Available [facility] ([facility]) [address] [facility] [place], [address], 08/17/2023 03:08:42 08/14/19 24 08/15/2023 COMP. METAB OLIC PANEL (14) calcium 10.0 mg/dL 8.7-10 .2 Not Available [facility] ([facility]) [address] [place], [address], 08/17/2023 03:08:42 08/14/19 24 08/15/2023 COMP. METAB OLIC PANEL (14) protein, total 8.1 g/dL 6.0-8. 5 Not Available [facility] ([facility]) [address] [facility] [place], [address], 08/17/2023 03:08:42 08/14/19 24 08/15/2023 COMP. METAB OLIC PANEL (14) albumin 5.1 g/dL 4.1-5. 1 Not Available [facility] ([facility]) [address] [facility] [place], [address], 08/17/2023 03:08:42 08/14/19 24 08/15/2023 COMP. METAB OLIC PANEL (14) globulin, total 3.0 g/dL 1.5-4. 5 Not Available [facility] ([facility]) [address] [facility] [place], [address], 08/17/2023 03:08:42 08/14/19 24 08/15/2023 COMP. METAB OLIC PANEL (14) A/G ratio 1.7 1.2-2. 2 Not Available [facility] ([facility]) [address] [facility] [place], [address], 08/17/2023 03:08:42 08/14/19 24 08/15/2023 COMP. METAB OLIC PANEL (14) bilirubin, total 1.1 mg/dL 0.0-1. 2 Not Available [facility] ([facility]) [address] [place], [address], 08/17/2023 03:08:42 08/14/19 24 08/15/2023 COMP. METAB OLIC PANEL (14) alkaline phosphatase 86 IU/L 44-121 Not Available [facility] ([facility]) [address] [place], [address], 08/17/2023 03:08:42 08/14/19 24 08/15/2023 COMP. METAB OLIC PANEL (14) AST (SGOT) 39 IU/L 0-40 Not Available [facility] ([facility]) [address] [facility] [place], [address], 08/17/2023 03:08:42 08/14/19 24 08/15/2023 COMP. METAB OLIC PANEL (14) ALT (SGPT) 31 IU/L 0-44 Not Available [facility] ([facility]) [address] [facility] [place], [address], 08/17/2023 03:08:42 08/14/19 24 08/14/2023 HELPE R T-LYM PH-CD 4 WBC 11.4 x10e3 /uL 3.4-10 .8 above high normal Not Available [facility] ([facility]) [address] [facility] [place], [address], 08/17/2023 03:08:43 08/14/19 24 08/14/2023 HELPE R T-LYM PH-CD 4 RBC 5.07 x10e6 /uL 4.14-5 .80 Not Available [facility] ([facility]) [address] [facility] [place], [address], 08/17/2023 03:08:43 08/14/19 24 08/14/2023 HELPE R T-LYM PH-CD 4 hemoglobin 16.1 g/dL 13.0-1 7.7 Not Available [facility] ([facility]) [address] [facility], [place], [address], 08/17/2023 03:08:43 08/14/19 24 08/14/2023 HELPE R T-LYM PH-CD 4 hematocrit 46.0 % 37.5-5 1.0 Not Available [facility] ([facility]) [address] [facility], [place], [address], 08/17/2023 03:08:43 08/14/1908/14/2023 HELPE R T-LYM PH-CD 4 MCV 91 fL 79-97 Not Available [facility] ([facility]) [address] [facility], [place], [address], 08/17/2023 03:08:43 08/14/19 24 08/14/2023 HELPE R T-LYM PH-CD 4 MCH 31.8 pg 26.6-3 3.0 Not Available [facility] ([facility]) [address] [facility], [place], [address], 08/17/2023 03:08:43 08/14/19 24 08/14/2023 HELPE R T-LYM PH-CD 4 MCHC 35.0 g/dL 31.5-3 5.7 Not Available [facility] ([facility]) [address] [facility], [place], [address], 08/17/2023 03:08:43 08/14/19 24 08/14/2023 HELPE R T-LYM PH-CD 4 RDW 13.3 % 11.6-1 5.4 Not Available [facility] ([facility]) [address] [place], [address], 08/17/2023 03:08:43 08/14/19 24 08/14/2023 HELPE R T-LYM PH-CD 4 platelets 321 x10e3 /uL 150-45 0 Not Available [facility] ([facility]) [address] [facility] [place], [address], 08/17/2023 03:08:43 08/14/19 24 08/14/2023 HELPE R T-LYM PH-CD 4 neutrophils 55 % notest ab. Not Available [facility] ([facility]) [address] [facility], [place], [address], 08/17/2023 03:08:43 08/14/19 24 08/14/2023 HELPE R T-LYM PH-CD 4 lymphs 34 % notest ab. Not Available [facility] ([facility]) [address] [facility], [place], [address], 08/17/2023 03:08:43 08/14/19 24 08/14/2023 HELPE R T-LYM PH-CD 4 monocytes 9 % notest ab. Not Available [facility] ([facility]) [address] [facility], [place], [address], 08/17/2023 03:08:43 08/14/19 24 08/14/2023 HELPE R T-LYM PH-CD 4 eos 1 % notest ab. Not Available [facility] ([facility]) [address] [place], [address], 08/17/2023 03:08:43 08/14/19 24 08/14/2023 HELPE R T-LYM PH-CD 4 basos 1 % notest ab. Not Available [facility] ([facility]) [address] [place], [address], 08/17/2023 03:08:43 08/14/19 24 08/14/2023 HELPE R T-LYM PH-CD 4 neutrophils (absolute) 6.2 x10e3 /uL 1.4-7. 0 Not Available [facility] ([facility]) [address] [place], [address], 08/17/2023 03:08:43 08/14/19 24 08/14/2023 HELPE R T-LYM PH-CD 4 lymphs (absolute) 3.9 x10e3 /uL 0.7-3. 1 above high normal Not Available [facility] ([facility]) [address] [facility], [place], [address], 08/17/2023 03:08:43 08/14/19 24 08/14/2023 HELPE R T-LYM PH-CD 4 monocytes(ab solute) 1.0 x10e3 /uL 0.1-0. 9 above high normal Not Available [facility] ([facility]) [address] [facility] [place], [address], 08/17/2023 03:08:43 08/14/19 24 08/14/2023 HELPE R T-LYM PH-CD 4 eos (absolute) 0.1 x10e3 /uL 0.0-0. 4 Not Available [facility] ([facility]) [address] [facility], [place], [address], 08/17/2023 03:08:43 08/14/19 24 08/14/2023 HELPE R T-LYM PH-CD 4 baso (absolute) 0.1 x10e3 /uL 0.0-0. 2 Not Available [facility] ([facility]) [address] [facility], [place], [address], 08/17/2023 03:08:43 08/14/19 24 08/14/2023 HELPE R T-LYM PH-CD 4 immature granulocytes 0 % notest ab. Not Available [facility] ([facility]) [address] [facility] [place], [address], 08/17/2023 03:08:43 08/14/19 24 08/14/2023 HELPE R T-LYM PH-CD 4 immature grans (abs) 0.0 x10e3 /uL 0.0-0. 1 Not Available [facility] ([facility]) [address] [facility], [place], [address], 08/17/2023 03:08:43 08/14/19 24 08/15/2023 HELPE R T-LYM PH-CD 4 absolute cd 4 helper 1814 /uL 359-15 19 above high normal Not Available [facility] ([facility]) [address] [facility], [place], [address], 08/17/2023 03:08:43 08/14/19 24 08/15/2023 HELPE R T-LYM PH-CD 4 % cd 4 pos. lymph. 46.5 % 30.8-5 8.5 Not Available [facility] ([facility]) [address] [facility], [place], [address], 08/17/2023 03:08:43 08/14/19 24 08/15/2023 RPR, RFX QN RPR/C ONFIR M TP RPR Non Reacti ve nonrea ctive Not Available [facility] ([facility]) [address] [place], [address], 08/17/2023 03:08:43 02/05/20 24 02/06/2024 TSH+F REE T4 TSH 5.340 uIU/m L 0.450- 4.500 above high normal Not Available [facility] ([facility]) [address] [place], [address], 02/06/2024 13:15:27 02/05/20 24 02/06/2024 TSH+F REE T4 T4,free(dire ct) 1.73 NG/dL 0.82-1 .77 Not Available [facility] ([facility]) [address] [place], [address], 02/06/2024 13:15:27 02/05/20 24 02/06/2024 LIPID PANEL WITH LDL/H DL RATIO cholesterol, total 217 mg/dL 100-19 9 above high normal Not Available [facility] ([facility]) [address] [facility], [place], [address], 02/06/2024 13:15:28 02/05/20 24 02/06/2024 LIPID PANEL WITH LDL/H DL RATIO triglyceride s 121 mg/dL 0-149 Not Available [facility] ([facility]) [address] [place], [address], 02/06/2024 13:15:28 02/05/20 24 02/06/2024 LIPID PANEL WITH LDL/H DL RATIO HDL cholesterol 65 mg/dL >39 Not Available [facility] ([facility]) [address] [facility], [place], [address], 02/06/2024 13:15:28 02/05/20 24 02/06/2024 LIPID PANEL WITH LDL/H DL RATIO VLDL cholesterol isiah 21 mg/dL 5-40 Not Available [facility] ([facility]) [address] [facility], [place], [address], 02/06/2024 13:15:28 02/05/20 24 02/06/2024 LIPID PANEL WITH LDL/H DL RATIO LDL chol calc ([facility]) 131 mg/dL 0-99 above high normal Not Available [facility] ([facility]) [address] [facility], [place], [address], 02/06/2024 13:15:28 02/05/20 24 02/06/2024 LIPID PANEL WITH LDL/H DL RATIO LDL/HDL ratio 2.0 ratio 0.0-3. 6 LDL/H DL Ratio Men Women 1/2 Avg.R isk 1.0 1.5 Avg.R isk 3.6 3.2 2X Avg.R isk 6.2 5.0 3X Avg.R isk 8.0 6.1 Not Available [facility] ([facility]) [address] [place], [address], 02/06/2024 13:15:28 02/05/20 24 02/06/2024 COMP. METAB OLIC PANEL (14) glucose 105 mg/dL 70-99 above high normal Not Available [facility] ([facility]) [address] [place], [address], 02/06/2024 13:15:29 02/05/20 24 02/06/2024 COMP. METAB OLIC PANEL (14) BUN 23 mg/dL 6-20 above high normal Not Available [facility] ([facility]) [address] [place], [address], 02/06/2024 13:15:29 02/05/20 24 02/06/2024 COMP. METAB OLIC PANEL (14) creatinine 1.56 mg/dL 0.76-1 .27 above high normal Not Available [facility] ([facility]) [address] [place], [address], 02/06/2024 13:15:29 02/05/20 24 02/06/2024 COMP. METAB OLIC PANEL (14) eGFR 60 mL/mi n/1.7 3 >59 Not Available [facility] ([facility]) [address] [place], [address], 02/06/2024 13:15:29 02/05/20 24 02/06/2024 COMP. METAB OLIC PANEL (14) BUN/creatini ne ratio 15 9-20 Not Available [facility] ([facility]) [address] [place], [address], 02/06/2024 13:15:29 02/05/20 24 02/06/2024 COMP. METAB OLIC PANEL (14) sodium 142 mmol/ L 134-14 4 Not Available [facility] ([facility]) [address] [place], [address], 02/06/2024 13:15:29 02/05/20 24 02/06/2024 COMP. METAB OLIC PANEL (14) potassium 3.8 mmol/ L 3.5-5. 2 Not Available [facility] ([facility]) [address] [place], [address], 02/06/2024 13:15:29 02/05/20 24 02/06/2024 COMP. METAB OLIC PANEL (14) chloride 102 mmol/ L 96-106 Not Available [facility] ([facility]) [address] [place], [address], 02/06/2024 13:15:29 02/05/20 24 02/06/2024 COMP. METAB OLIC PANEL (14) carbon dioxide, total 19 mmol/ L 20-29 below low normal Not Available [facility] ([facility]) [address] [place], [address], 02/06/2024 13:15:29 02/05/20 24 02/06/2024 COMP. METAB OLIC PANEL (14) calcium 9.9 mg/dL 8.7-10 .2 Not Available [facility] ([facility]) [address] [place], [address], 02/06/2024 13:15:29 02/05/20 24 02/06/2024 COMP. METAB OLIC PANEL (14) protein, total 8.1 g/dL 6.0-8. 5 Not Available [facility] ([facility]) [address] [place], [address], 02/06/2024 13:15:29 02/05/20 24 02/06/2024 COMP. METAB OLIC PANEL (14) albumin 5.2 g/dL 4.1-5. 1 above high normal Not Available [facility] ([facility]) [address] [place], [address], 02/06/2024 13:15:29 02/05/20 24 02/06/2024 COMP. METAB OLIC PANEL (14) globulin, total 2.9 g/dL 1.5-4. 5 Not Available [facility] ([facility]) [address] [facility], [place], [address], 02/06/2024 13:15:29 02/05/20 24 02/06/2024 COMP. METAB OLIC PANEL (14) bilirubin, total 0.9 mg/dL 0.0-1. 2 Not Available [facility] ([facility]) [address] [facility], [place], [address], 02/06/2024 13:15:29 02/05/20 24 02/06/2024 COMP. METAB OLIC PANEL (14) alkaline phosphatase 85 IU/L 44-121 Not Available [facility] ([facility]) [address] [facility], [place], [address], 02/06/2024 13:15:29 02/05/20 24 02/06/2024 COMP. METAB OLIC PANEL (14) AST (SGOT) 45 IU/L 0-40 above high normal Not Available [facility] ([facility]) [address] [facility], [place], [address], 02/06/2024 13:15:29 02/05/20 24 02/06/2024 COMP. METAB OLIC PANEL (14) ALT (SGPT) 49 IU/L 0-44 above high normal Not Available [facility] ([facility]) [address] [facility], [place], [address], 02/06/2024 13:15:29 02/05/20 24 02/06/2024 HEMOG LOBIN A1C hemoglobin A1C 5.7 % 4.8-5. 6 above high normal Predi abete s: 5.7 - 6.4 Diabe saad: >6.4 Glyce omkar contr ol for adult s with diabe saad: <7.0 Not Available [facility] ([facility]) [address] [facility], [place], [address], 02/06/2024 13:15:30 02/05/20 24 02/06/2024 CBC WITH DIFFE RENTI AL/PL ATELE T WBC 9.2 x10e3 /uL 3.4-10 .8 Not Available [facility] ([facility]) [address] [facility], [place], [address], 02/06/2024 13:15:30 02/05/20 24 02/06/2024 CBC WITH DIFFE RENTI AL/PL ATELE T RBC 5.01 x10e6 /uL 4.14-5 .80 Not Available [facility] ([facility]) [address] [facility], [place], [address], 02/06/2024 13:15:30 02/05/20 24 02/06/2024 CBC WITH DIFFE RENTI AL/PL ATELE T hemoglobin 15.5 g/dL 13.0-1 7.7 Not Available [facility] ([facility]) [address] [facility], [place], [address], 02/06/2024 13:15:30 02/05/20 24 02/06/2024 CBC WITH DIFFE RENTI AL/PL ATELE T hematocrit 45.9 % 37.5-5 1.0 Not Available [facility] ([facility]) [address] [place], [address], 02/06/2024 13:15:30 02/05/20 24 02/06/2024 CBC WITH DIFFE RENTI AL/PL ATELE T MCV 92 fL 79-97 Not Available [facility] ([facility]) [address] [place], [address], 02/06/2024 13:15:30 02/05/20 24 02/06/2024 CBC WITH DIFFE RENTI AL/PL ATELE T MCH 30.9 pg 26.6-3 3.0 Not Available [facility] ([facility]) [address] [place], [address], 02/06/2024 13:15:30 02/05/20 24 02/06/2024 CBC WITH DIFFE RENTI AL/PL ATELE T MCHC 33.8 g/dL 31.5-3 5.7 Not Available [facility] ([facility]) [address] [facility], [place], [address], 02/06/2024 13:15:30 02/05/20 24 02/06/2024 CBC WITH DIFFE RENTI AL/PL ATELE T RDW 13.0 % 11.6-1 5.4 Not Available [facility] ([facility]) [address] [facility], [place], [address], 02/06/2024 13:15:30 02/05/20 24 02/06/2024 CBC WITH DIFFE RENTI AL/PL ATELE T platelets 329 x10e3 /uL 150-45 0 Not Available [facility] ([facility]) [address] [facility], [place], [address], 02/06/2024 13:15:30 02/05/20 24 02/06/2024 CBC WITH DIFFE RENTI AL/PL ATELE T neutrophils 38 % notest ab. Not Available [facility] ([facility]) [address] [facility], [place], [address], 02/06/2024 13:15:30 02/05/20 24 02/06/2024 CBC WITH DIFFE RENTI AL/PL ATELE T lymphs 50 % notest ab. Not Available [facility] ([facility]) [address] [facility], [place], [address], 02/06/2024 13:15:30 02/05/20 24 02/06/2024 CBC WITH DIFFE RENTI AL/PL ATELE T monocytes 10 % notest ab. Not Available [facility] ([facility]) [address] [facility], [place], [address], 02/06/2024 13:15:30 02/05/20 24 02/06/2024 CBC WITH DIFFE RENTI AL/PL ATELE T eos 1 % notest ab. Not Available [facility] ([facility]) [address] [facility], [place], [address], 02/06/2024 13:15:30 02/05/20 24 02/06/2024 CBC WITH DIFFE RENTI AL/PL ATELE T basos 1 % notest ab. Not Available [facility] ([facility]) [address] [facility], [place], [address], 02/06/2024 13:15:30 02/05/20 24 02/06/2024 CBC WITH DIFFE RENTI AL/PL ATELE T neutrophils (absolute) 3.5 x10e3 /uL 1.4-7. 0 Not Available [facility] ([facility]) [address] [facility], [place], [address], 02/06/2024 13:15:30 02/05/20 24 02/06/2024 CBC WITH DIFFE RENTI AL/PL ATELE T lymphs (absolute) 4.5 x10e3 /uL 0.7-3. 1 above high normal Not Available [facility] ([facility]) [address] [facility], [place], [address], 02/06/2024 13:15:30 02/05/20 24 02/06/2024 CBC WITH DIFFE RENTI AL/PL ATELE T monocytes(ab solute) 0.9 x10e3 /uL 0.1-0. 9 Not Available [facility] ([facility]) [address] [facility], [place], [address], 02/06/2024 13:15:30 02/05/20 24 02/06/2024 CBC WITH DIFFE RENTI AL/PL ATELE T eos (absolute) 0.1 x10e3 /uL 0.0-0. 4 Not Available [facility] ([facility]) [address] [facility], [place], [address], 02/06/2024 13:15:30 02/05/20 24 02/06/2024 CBC WITH DIFFE RENTI AL/PL ATELE T baso (absolute) 0.1 x10e3 /uL 0.0-0. 2 Not Available [facility] ([facility]) [address] [facility], [place], [address], 02/06/2024 13:15:30 02/05/20 24 02/06/2024 CBC WITH DIFFE RENTI AL/PL ATELE T immature granulocytes 0 % notest ab. Not Available [facility] ([facility]) [address] [facility], [place], [address], 02/06/2024 13:15:30 02/05/20 24 02/06/2024 CBC WITH DIFFE RENTI AL/PL ATELE T immature grans (abs) 0.0 x10e3 /uL 0.0-0. 1 Not Available [facility] ([facility]) [address] [facility], [place], [address], 02/06/2024 13:15:30 03/05/20 24 03/07/2024 MICRO SCOPI C EXAMI NATIO N WBC 0-5 /hpf 0-5 Not Available [facility] ([facility]) [address] [facility], [place], [address], 03/07/2024 02:09:17 03/05/20 24 03/07/2024 MICRO SCOPI C EXAMI NATIO N RBC None seen /hpf 0-2 Not Available [facility] ([facility]) [address] [facility], [place], [address], 03/07/2024 02:09:17 03/05/2003/07/2024 MICRO SCOPI C EXAMI NATIO N epithelial cells (non renal) None seen /hpf 0-10 Not Available [facility] ([facility]) [address] [facility], [place], [address], 03/07/2024 02:09:17 03/05/2003/07/2024 MICRO SCOPI C EXAMI NATIO N casts None seen /lpf nonese en Not Available [facility] ([facility]) [address] [facility], [place], [address], 03/07/2024 02:09:17 03/05/2003/07/2024 MICRO SCOPI C EXAMI NATIO N bacteria None seen nonese en/few Not Available [facility] ([facility]) [address] [facility], [place], [address], 03/07/2024 02:09:17 03/05/2003/06/2024 WRITT EN AUTHO RIZAT ION written authorizatio n Commen t Ericitt en Autho rizat ion Recei aisha. Autho rizat ion recei aisha from PER ORIGI NAL ORDER 283-3 36-11 89-0 03-06 Logge d by Tamiko Kern as Not Available [facility] ([facility]) [address] [facility], [place], [address], 03/07/2024 02:09:17 03/05/2003/07/2024 URINA LYSIS , COMPL ETE specific gravity 1.027 1.005- 1.030 Not Available [facility] ([facility]) [address] [facility], [place], [address], 03/07/2024 02:09:18 03/05/2003/07/2024 URINA LYSIS , COMPL ETE pH 5.5 5.0-7. 5 Not Available [facility] ([facility]) [address] [facility], [place], [address], 03/07/2024 02:09:18 03/05/2003/07/2024 URINA LYSIS , COMPL ETE urine-color YELLOW yellow Not Available [facility] ([facility]) [address] [facility], [place], [address], 03/07/2024 02:09:18 03/05/2003/07/2024 URINA LYSIS , COMPL ETE appearance TURBID clear abnormal Not Available [facility] ([facility]) [address] [facility], [place], [address], 03/07/2024 02:09:18 03/05/2003/07/2024 URINA LYSIS , COMPL ETE WBC esterase NEGATI VE negati ve Not Available [facility] ([facility]) [address] [facility], [place], [address], 03/07/2024 02:09:18 03/05/2003/07/2024 URINA LYSIS , COMPL ETE protein NEGATI VE negati ve/tra ce Not Available [facility] ([facility]) [address] [facility], [place], [address], 03/07/2024 02:09:18 03/05/2003/07/2024 URINA LYSIS , COMPL ETE glucose NEGATI VE negati ve Not Available [facility] ([facility]) [address] [facility], [place], [address], 03/07/2024 02:09:18 03/05/2003/07/2024 URINA LYSIS , COMPL ETE ketones TRACE negati ve abnormal Not Available [facility] ([facility]) [address] [facility], [place], [address], 03/07/2024 02:09:18 03/05/2003/07/2024 URINA LYSIS , COMPL ETE occult blood NEGATI VE negati ve Not Available [facility] ([facility]) [address] [place], [address], 03/07/2024 02:09:18 03/05/2003/07/2024 URINA LYSIS , COMPL ETE bilirubin NEGATI VE negati ve Not Available [facility] ([facility]) [address] [place], [address], 03/07/2024 02:09:18 03/05/2003/07/2024 URINA LYSIS , COMPL ETE urobilinogen ,semi-qn 0.2 mg/dL 0.2-1. 0 Not Available [facility] ([facility]) [address] [facility], [place], [address], 03/07/2024 02:09:18 03/05/20 24 03/07/2024 URINA LYSIS , COMPL ETE nitrite, urine NEGATI VE negati ve Not Available [facility] ([facility]) [address] [facility], [place], [address], 03/07/2024 02:09:18 03/05/20 24 03/07/2024 URINA LYSIS , COMPL ETE microscopic examination COMMEN T Micro scopi c follo ws if indic ated. Not Available [facility] ([facility]) [address] [facility], [place], [address], 03/07/2024 02:09:18 03/05/20 24 03/07/2024 URINA LYSIS , COMPL ETE microscopic examination SEE BELOW: Micro scopi c was indic ated and was perfo rmed. Not Available [facility] ([facility]) [address] [facility], [place], [address], 03/07/2024 02:09:18 03/05/20 24 03/06/2024 INTER PRETA TION: interpretati on: Commen t Not infec debbie with HCV unles s early or acute infec tion is suspe cted (whic h may be delay ed in an immun ocomp romis ed indiv idual ), or other evide nce exist s to indic ate HCV infec tion. Not Available [facility] ([facility]) [address] [facility], [place], [address], 03/07/2024 05:10:41 03/05/20 24 03/06/2024 HCV ANTIB STEVAN RFX TO QUANT PCR HCV Ab NON REACTI VE nonrea ctive Not Available [facility] ([facility]) [address] [facility], [place], [address], 03/07/2024 05:10:42 03/05/20 24 03/07/2024 CT, NG, TRICH VAG BY JESSA chlamydia by JESSA NEGATI VE negati ve Not Available [facility] ([facility]) [address] [facility], [place], [address], 03/07/2024 05:10:43 03/05/20 24 03/07/2024 CT, NG, TRICH VAG BY JESSA gonococcus by JESSA NEGATI VE negati ve Not Available [facility] ([facility]) [address] [place], [address], 03/07/2024 05:10:43 03/05/2003/07/2024 CT, NG, TRICH VAG BY JESSA trich vag by JESSA NEGATI VE negati ve Not Available [facility] ([facility]) [address] [place], [address], 03/07/2024 05:10:43 03/05/20 24 03/06/2024 LIPID PANEL W/ CHOL/ HDL RATIO cholesterol, total 161 mg/dL 100-19 9 Not Available [facility] ([facility]) [address] [place], [address], 03/07/2024 05:10:44 03/05/20 24 03/06/2024 LIPID PANEL W/ CHOL/ HDL RATIO triglyceride s 131 mg/dL 0-149 Not Available [facility] ([facility]) [address] [place], [address], 03/07/2024 05:10:44 03/05/20 24 03/06/2024 LIPID PANEL W/ CHOL/ HDL RATIO HDL cholesterol 65 mg/dL >39 Not Available [facility] ([facility]) [address] [place], [address], 03/07/2024 05:10:44 03/05/20 24 03/06/2024 LIPID PANEL W/ CHOL/ HDL RATIO VLDL cholesterol isiah 23 mg/dL 5-40 Not Available [facility] ([facility]) [address] [facility], [place], [address], 03/07/2024 05:10:44 03/05/20 24 03/06/2024 LIPID PANEL W/ CHOL/ HDL RATIO LDL chol calc ([facility]) 73 mg/dL 0-99 Not Available [facility] ([facility]) [address] [facility], [place], [address], 03/07/2024 05:10:44 03/05/20 24 03/06/2024 LIPID PANEL W/ CHOL/ HDL RATIO T. chol/HDL ratio 2.5 ratio 0.0-5. 0 T. Chol/ HDL Ratio Men Women 1/2 Avg.R isk 3.4 3.3 Avg.R isk 5.0 4.4 2X Avg.R isk 9.6 7.1 3X Avg.R isk 23.4 11.0 Not Available [facility] ([facility]) [address] [facility], [place], [address], 03/07/2024 05:10:44 03/05/20 24 03/06/2024 COMP. METAB OLIC PANEL (14) glucose - mg/dL Test not perfo rmed. Serum was in conta ct with cells when recei aisha which will make the resul t inacc urate . Not Available [facility] ([facility]) [address] [facility], [place], [address], 03/07/2024 05:10:45 03/05/20 24 03/06/2024 COMP. METAB OLIC PANEL (14) BUN 20 mg/dL 6-20 Not Available [facility] ([facility]) [address] [place], [address], 03/07/2024 05:10:45 03/05/20 24 03/06/2024 COMP. METAB OLIC PANEL (14) creatinine 1.31 mg/dL 0.76-1 .27 above high normal Not Available [facility] ([facility]) [address] [facility], [place], [address], 03/07/2024 05:10:45 03/05/20 24 03/06/2024 COMP. METAB OLIC PANEL (14) eGFR 74 mL/mi n/1.7 3 >59 Not Available [facility] ([facility]) [address] [facility] [place], [address], 03/07/2024 05:10:45 03/05/20 24 03/06/2024 COMP. METAB OLIC PANEL (14) BUN/creatini ne ratio 15 9-20 Not Available [facility] ([facility]) [address] [facility] [place], [address], 03/07/2024 05:10:45 03/05/20 24 03/06/2024 COMP. METAB OLIC PANEL (14) sodium 138 mmol/ L 134-14 4 Not Available [facility] ([facility]) [address] [facility], [place], [address], 03/07/2024 05:10:45 03/05/20 24 03/06/2024 COMP. METAB OLIC PANEL (14) potassium - mmol/ L Test not perfo rmed. Serum was in conta ct with cells when recei aisha which will make the resul t inacc urate . Not Available [facility] ([facility]) [address] [place], [address], 03/07/2024 05:10:45 03/05/20 24 03/06/2024 COMP. METAB OLIC PANEL (14) chloride 96 mmol/ L 96-106 Not Available [facility] ([facility]) [address] [facility] [place], [address], 03/07/2024 05:10:45 03/05/20 24 03/06/2024 COMP. METAB OLIC PANEL (14) carbon dioxide, total 19 mmol/ L 20-29 below low normal Not Available [facility] ([facility]) [address] [place], [address], 03/07/2024 05:10:45 03/05/20 24 03/06/2024 COMP. METAB OLIC PANEL (14) calcium 10.1 mg/dL 8.7-10 .2 Not Available [facility] ([facility]) [address] [place], [address], 03/07/2024 05:10:45 03/05/20 24 03/06/2024 COMP. METAB OLIC PANEL (14) protein, total 8.5 g/dL 6.0-8. 5 Not Available [facility] ([facility]) [address] [facility] [place], [address], 03/07/2024 05:10:45 03/05/20 24 03/06/2024 COMP. METAB OLIC PANEL (14) albumin 5.6 g/dL 4.1-5. 1 above high normal Not Available [facility] ([facility]) [address] [facility], [place], [address], 03/07/2024 05:10:45 03/05/20 24 03/06/2024 COMP. METAB OLIC PANEL (14) globulin, total 2.9 g/dL 1.5-4. 5 Not Available [facility] ([facility]) [address] [facility] [place], [address], 03/07/2024 05:10:45 03/05/20 24 03/06/2024 COMP. METAB OLIC PANEL (14) bilirubin, total 0.8 mg/dL 0.0-1. 2 Not Available [facility] ([facility]) [address] [facility] [place], [address], 03/07/2024 05:10:45 03/05/20 24 03/06/2024 COMP. METAB OLIC PANEL (14) alkaline phosphatase 85 IU/L 44-121 Not Available [facility] ([facility]) [address] [facility] [place], [address], 03/07/2024 05:10:45 03/05/20 24 03/06/2024 COMP. METAB OLIC PANEL (14) AST (SGOT) 36 IU/L 0-40 Not Available [facility] ([facility]) [address] [facility], [place], [address], 03/07/2024 05:10:45 03/05/20 24 03/06/2024 COMP. METAB OLIC PANEL (14) ALT (SGPT) 36 IU/L 0-44 Not Available [facility] ([facility]) [address] [facility], [place], [address], 03/07/2024 05:10:45 03/05/20 24 03/06/2024 HELPE R T-LYM PH-CD 4 absolute cd 4 helper 1692 /uL 359-15 19 above high normal Not Available [facility] ([facility]) [address] [facility], [place], [address], 03/07/2024 05:10:46 03/05/20 24 03/06/2024 HELPE R T-LYM PH-CD 4 % cd 4 pos. lymph. 42.3 % 30.8-5 8.5 Not Available [facility] ([facility]) [address] [facility] [place], [address], 03/07/2024 05:10:46 03/05/20 24 03/06/2024 HELPE R T-LYM PH-CD 4 WBC 12.9 x10e3 /uL 3.4-10 .8 above high normal Not Available [facility] ([facility]) [address] [facility] [place], [address], 03/07/2024 05:10:46 03/05/20 24 03/06/2024 HELPE R T-LYM PH-CD 4 RBC 4.95 x10e6 /uL 4.14-5 .80 Not Available [facility] ([facility]) [address] [place], [address], 03/07/2024 05:10:46 03/05/20 24 03/06/2024 HELPE R T-LYM PH-CD 4 hemoglobin 15.0 g/dL 13.0-1 7.7 Not Available [facility] ([facility]) [address] [facility], [place], [address], 03/07/2024 05:10:46 03/05/2003/06/2024 HELPE R T-LYM PH-CD 4 hematocrit 46.7 % 37.5-5 1.0 Not Available [facility] ([facility]) [address] [facility], [place], [address], 03/07/2024 05:10:46 03/05/20 24 03/06/2024 HELPE R T-LYM PH-CD 4 MCV 94 fL 79-97 Not Available [facility] ([facility]) [address] [facility], [place], [address], 03/07/2024 05:10:46 03/05/20 24 03/06/2024 HELPE R T-LYM PH-CD 4 MCH 30.3 pg 26.6-3 3.0 Not Available [facility] ([facility]) [address] [facility], [place], [address], 03/07/2024 05:10:46 03/05/20 24 03/06/2024 HELPE R T-LYM PH-CD 4 MCHC 32.1 g/dL 31.5-3 5.7 Not Available [facility] ([facility]) [address] [place], [address], 03/07/2024 05:10:46 03/05/2003/06/2024 HELPE R T-LYM PH-CD 4 RDW 13.3 % 11.6-1 5.4 Not Available [facility] ([facility]) [address] [place], [address], 03/07/2024 05:10:46 03/05/20 24 03/06/2024 HELPE R T-LYM PH-CD 4 platelets 328 x10e3 /uL 150-45 0 Not Available [facility] ([facility]) [address] [facility], [place], [address], 03/07/2024 05:10:46 03/05/20 24 03/06/2024 HELPE R T-LYM PH-CD 4 neutrophils 59 % notest ab. Not Available [facility] ([facility]) [address] [facility], [place], [address], 03/07/2024 05:10:46 03/05/2003/06/2024 HELPE R T-LYM PH-CD 4 lymphs 31 % notest ab. Not Available [facility] ([facility]) [address] [facility], [place], [address], 03/07/2024 05:10:46 03/05/20 24 03/06/2024 HELPE R T-LYM PH-CD 4 monocytes 8 % notest ab. Not Available [facility] ([facility]) [address] [facility], [place], [address], 03/07/2024 05:10:46 03/05/20 24 03/06/2024 HELPE R T-LYM PH-CD 4 eos 1 % notest ab. Not Available [facility] ([facility]) [address] [facility], [place], [address], 03/07/2024 05:10:46 03/05/20 24 03/06/2024 HELPE R T-LYM PH-CD 4 basos 1 % notest ab. Not Available [facility] ([facility]) [address] [facility], [place], [address], 03/07/2024 05:10:46 03/05/20 24 03/06/2024 HELPE R T-LYM PH-CD 4 neutrophils (absolute) 7.7 x10e3 /uL 1.4-7. 0 above high normal Not Available [facility] ([facility]) [address] [facility], [place], [address], 03/07/2024 05:10:46 03/05/20 24 03/06/2024 HELPE R T-LYM PH-CD 4 lymphs (absolute) 4.0 x10e3 /uL 0.7-3. 1 above high normal Not Available [facility] ([facility]) [address] [facility], [place], [address], 03/07/2024 05:10:46 03/05/20 24 03/06/2024 HELPE R T-LYM PH-CD 4 monocytes(ab solute) 1.0 x10e3 /uL 0.1-0. 9 above high normal Not Available [facility] ([facility]) [address] [facility], [place], [address], 03/07/2024 05:10:46 03/05/20 24 03/06/2024 HELPE R T-LYM PH-CD 4 eos (absolute) 0.1 x10e3 /uL 0.0-0. 4 Not Available [facility] ([facility]) [address] [facility], [place], [address], 03/07/2024 05:10:46 03/05/20 24 03/06/2024 HELPE R T-LYM PH-CD 4 baso (absolute) 0.1 x10e3 /uL 0.0-0. 2 Not Available [facility] ([facility]) [address] [facility], [place], [address], 03/07/2024 05:10:46 03/05/20 24 03/06/2024 HELPE R T-LYM PH-CD 4 immature granulocytes 0 % notest ab. Not Available [facility] ([facility]) [address] [facility], [place], [address], 03/07/2024 05:10:46 03/05/20 24 03/06/2024 HELPE R T-LYM PH-CD 4 immature grans (abs) 0.0 x10e3 /uL 0.0-0. 1 Not Available [facility] ([facility]) [address] [facility], [place], [address], 03/07/2024 05:10:46 03/05/20 24 03/06/2024 RPR, RFX QN RPR/C ONFIR M TP RPR NON REACTI VE nonrea ctive Not Available [facility] ([facility]) [address] [facility], [place], [address], 03/07/2024 05:10:47 03/05/20 24 03/06/2024 QUANT IFERO N-TB GOLD PLUS quantiferon incubation INCUBA TION PERFOR MED. Not Available [facility] ([facility]) [address] [facility], [place], [address], 03/08/2024 00:08:57 03/05/2003/06/2024 QUANT IFERO N-TB GOLD PLUS quantiferon criteria COMMEN T Quant iFERO N-TB Gold Plus is a quali tativ e indir ect test for M tuber culos is infec tion (incl uding disea se) and is inten ded for use in conju nctio n with risk asses sment , radio graph y, and other medic al and diagn ostic evalu ation s. The Quant iFERO N-TB Gold Plus resul t is deter mined by subtr actin g the Nil value from eithe r TB antig en (Ag) value . The Mitog en tube serve s as a contr ol for the test. Not Available [facility] ([facility]) [address] [facility] [address], [place], [address], 03/08/2024 00:08:57 03/05/20 24 03/07/2024 QUANT IFERO N-TB GOLD PLUS quantiferon- TB gold plus NEGATI VE negati ve No respo nse to M tuber culos is antig ens detec debbie. Infec tion with M tuber culos is is unlik celia, but high risk indiv idual s shoul d be consi dered for addit ional testi ng (ATS/ IDSA/ CDC Clini isiah Pract ice Guide lines , 2017) . The refer ence range is an Antig en minus Nil resul t of <0.35 IU/mL . Chemi lumin escen ce immun oassa y metho dolog y Not Available [facility] ([facility]) [address] [place], [address], 03/08/2024 00:08:57 03/05/20 24 03/07/2024 QUANT IFERO N-TB GOLD PLUS quantiferon TB1 Ag value 0.79 IU/mL Not Available [facility] ([facility]) [address] [place], [address], 03/08/2024 00:08:57 03/05/2003/07/2024 QUANT IFERO N-TB GOLD PLUS quantiferon TB2 Ag value 0.71 IU/mL Not Available [facility] ([facility]) [address] [place], [address], 03/08/2024 00:08:57 03/05/2003/07/2024 QUANT IFERO N-TB GOLD PLUS quantiferon nil value 0.93 IU/mL Not Available [facility] ([facility]) [address] [place], [address], 03/08/2024 00:08:57 03/05/2003/07/2024 QUANT IFERO N-TB GOLD PLUS quantiferon mitogen value >10.00 IU/mL Not Available [facility] ([facility]) [address] [place], [address], 03/08/2024 00:08:57 03/05/20 24 01/25/2023 sleep study , diagn ostic (PROC ) No observ ation record ed. [facility] [address] [facility] [address], [place], [address], 03/07/2024 13:41:13 Result Notes None recorded. Problems Name Problem SNOMED Code Status Onset Date Resolution Date Notes Provider Name and Address Organization Details Recorded Time Fatigue 50392224 Active 2018 Yasmeen villa, [place] - [facility] 9 14:56:24 Body mass index 30+ - obesity 053921714 Active 2018 Ferdinand Shin PA-C Attn: Bar gonsales,[address] [place], [address], [facility] 9 15:03:07 Human immunodeficien cy virus infection 66780967 Active 2018 SCAR LEDEZMA Attn: Bar gonsales,[address] [place], [address], [facility] 4 10:38:40 Mixed anxiety and depressive disorder 453832557 Active 2023 SCAR LEDEZMA Attn: Bar gonsales,[address] [place], [address], [facility] 4 10:46:22 Obstructive sleep apnea syndrome 10327210 Active 2023 SCAR LEDEZMA Attn: Bar gonsales,[address] [place], [address], [facility] 4 13:41:58 Essential hypertension 84835538 Active 2023 SCAR LEDEZMA Attn: Bar gonsales,[address] [place], [address], [facility] 4 09:54:17 Problem Notes None recorded. Procedures Surgical History None recorded. Imaging Results Imaging Date Name Status LastModified by [facility] Details LastModified Time 01/25/2023 sleep study, diagnostic (PROC) completed [facility] [address] [facility] [address] [address], [place], [address], 03/07/2024 13:41:13 Procedure Notes None recorded. Medical Equipment None Reported. Allergies No known drug allergies Medications Name Sig Start Date Stop Date Status Note LastModified by Organization Details LastModified Time atorvasta tin 40 mg tablet TAKE 1 TABLET BY MOUTH EVERY DAY AT BEDTIME active Not Available Not Available No t Available buspirone 5 mg tablet TAKE 1 TABLET BY MOUTH TWICE DAILY DIRECTED FOR ANXIETY 04/04 completed dizzines s Not Available Not Available Not Available paroxetin e 10 mg tablet 02/04 completed Not Available Not Available Not Available atorvasta tin 20 mg tablet TAKE 1 TABLET BY MOUTH EVERY DAY AT BEDTIME 03/05 completed Not Available Not Available Not Available ibuprofen 800 mg tablet active Not Available Not Available Not Available amoxicill in 500 mg tablet 02/04 completed Not Available Not Available Not Available amoxicill in 875 mg tablet 04/04 completed Not Available Not Available Not Available paroxetin e 20 mg tablet 02/04 completed Not Available Not Available Not Available sertralin e 25 mg tablet 07/04 completed Not Available Not Available Not Available ceftriaxo ne 500 mg solution for injection Take 500 mg every day by injectio n route as directed for 1 day. 02/04 completed Not Available Not Available Not Available ergocalci ferol (vitamin D2) 1,250 mcg (50,000 unit) capsule TAKE 1 CAPSULE BY MOUTH 1 TIME A WEEK 02/04 completed Not Available Not Available Not Available lisinopri l 40 mg tablet TAKE 1 TABLET BY MOUTH EVERY DAY DIRECTED FOR HIGH BLOOD PRESSURE active Not Available Not Available No t Available sertralin e 50 mg tablet 02/04 completed Not Available Not Available Not Available azithromy hector 500 mg tablet Take 2 tablets every day by oral route as directed for 1 day. 02/04 completed Not Available Not Available Not Available bupropion HCl XL 150 mg 24 hr tablet, extended release TAKE 1 TABLET BY MOUTH EVERY DAY IN THE MORNING FOR ANXIETY active Not Available Not Available No t Available hydrochlo rothiazid e 12.5 mg tablet Take 1 tablet every day by oral route in the morning for 90 days, for HTN. active Not Available Not Available No t Available doxycycli ne hyclate 200 mg tablet,de layed release TAKE 1 TABLET BY MOUTH EVERY DAY NEEDED FOR PEP AFTER CONDOMLE SS SEX 03/24 completed Not Available Not Available Not Available cyanocoba soledad (vitamin B-12) 1,000 mcg capsule TAKE ONE CAPSULE BY MOUTH EVERY DAY. 03/24 completed Not Available Not Available Not Available Biktarvy 50 mg-200 mg-25 mg tablet TAKE 1 TABLET BY MOUTH DAILY 2024 active Not Available Not Available Not Avai lable Vitals Date Recorded Body height Body mass index (BMI) Body weight Body temperature Respiratory rate Oxygen saturation Oxygen saturation in Arterial blood by Pulse oximetry Heart rate Systolic blood pressure Diastolic blood pressure Provider Name and Address Organization Details Last Updated DateTime 4 162.56 cm 33 kg/m2 76174.7 4 g 98.4 [degF] 18 /min 99 % 99 % 94 /min 142 mm[Hg] 90 mm[Hg] Erin Banks MA [facility] 11:11:51 Date Recorded Body height Body mass index (BMI) Body weight Oxygen saturation Oxygen saturation in Arterial blood by Pulse oximetry Heart rate Respiratory rate Systolic blood pressure Diastolic blood pressure Provider Name and Address Organization Details Last Updated DateTime 4 162.56 cm 35.7 kg/m2 43877.6 1 g 98 % 98 % 90 /min 18 /min 151 mm[Hg] 98 mm[Hg] Edie Clifton MA [facility] 4 10:34:18 Date Recorded Systolic blood pressure Diastolic blood pressure Provider Name and Address Organization Details Last Updated DateTime 02/05/2024 150 mm[Hg] 90 mm[Hg] SCAR LEDEZMA Attn: [address]ing[address] [place], [address], [facility] 02/06/2024 10:43:07 Date Recorded Body height Body mass index (BMI) Body weight Body temperature Oxygen saturation Oxygen saturation in Arterial blood by Pulse oximetry Heart rate Respiratory rate Systolic blood pressure Diastolic blood pressure Provider Name and Address Organization Details Last Updated DateTime 4 162.56 cm 35.9 kg/m2 46433.5 1 g 98.2 [degF] 97 % 97 % 73 /min 18 /min 122 mm[Hg] 74 mm[Hg] Erin Banks MA [facility] 4 14:07:12 Date Recorded Body height Body mass index (BMI) Body weight Oxygen saturation Oxygen saturation in Arterial blood by Pulse oximetry Heart rate Systolic blood pressure Diastolic blood pressure Provider Name and Address Organization Details Last Updated DateTime 4 162.56 cm 36.2 kg/m2 83675.9 9 g 99 % 99 % 80 /min 130 mm[Hg] 87 mm[Hg] Rosina Emmanuel MA [facility] 4 09:11:03 Date Recorded Respiratory rate Systolic blood pressure Diastolic blood pressure Provider Name and Address Organization Details Last Updated DateTime 03/05/2024 18 /min 140 mm[Hg] 90 mm[Hg] SCAR LEDEZMA Attn: Accounting, [address] [place], [address], [facility] 03/05/2024 10:57:42 Date Recorded Body height Body mass index (BMI) Body weight Oxygen saturation Oxygen saturation in Arterial blood by Pulse oximetry Heart rate Respiratory rate Systolic blood pressure Diastolic blood pressure Provider Name and Address Organization Details Last Updated DateTime 4 162.56 cm 36.7 kg/m2 10909.7 7 g 97 % 97 % 73 /min 18 /min 147 mm[Hg] 95 mm[Hg] Carmen Vazquez MA [facility] 4 09:33:20 Date Recorded Systolic blood pressure Diastolic blood pressure Provider Name and Address Organization Details Last Updated DateTime 04/04/2024 140 mm[Hg] 90 mm[Hg] SCAR LEDEZMA Attn: Accounting[address] [place], [address], [facility] 04/04/2024 09:56:34 Social History Question Answer Notes LastModified by Organizat ion Details LastModified Time Tobacco Smoking Status Never Smoker Yasmeen villa, [facility] 12/17/2018 14:57:28 What Is Your Level Of Alcohol Consumption? Heavy Information not available 02/05/2024 Do You Or Have You Ever Used E-cigarettes Or Vape? Never Used Electronic Cigarettes Information not available 06/03/2019 Date Of 1st HIV Medical Visit 12/17/2018 Information not available 02/27/2019 [facility] Slide Cap On Charges 1117.04 [email or web address] Information not available 05/05/2024 HIV Dx By [facility] No Informatio n not available 12/17/2018 HIV Risk Counseling #1 06/03/2019 Information not available 06/03/2019 Depression Screen/Follow Up Plan 06/03/2019 Information not available 06/03/2019 Hep B Status Immune Information not available 06/03/2019 RW Visit Frequency 4 Months Information not available 01/12/2022 New Patient Type At Intake Newly Diagnosed (12 Mos) Information not available 12/10/2018 Dental Provider Alexcorbin [facility] Dental [email or web address] Information not available 12/27/2020 URN [id number] Information no t available 12/10/2018 [facility] End Date 12/09/2018 Information not available 12/10/2018 [facility] Status Active Information no t available 12/10/2018 Current Gender Identity Male Information not available 12/17/2018 Information Technology Security Manager / Phone # Delores Aragon ([phone]) Information not available 05/10/2021 Information Technology Security ManagerHospice Art Therapist [facility] Information not available 12/10/2018 Risk Factor 1 (MSM) Men Who Have Sex With Men Information not available 12/10/2018 Program Designation Regulo White Information not available 12/10/2018 HIV Diagnosis Date 11/20/2018 Information not available 12/17/2018 What Was The Date Of Your Most Recent Tobacco Screening? 03/05/2024 Information not available 03/05/2024 Do You Use Protection During Sex? Always Information not available 12/30/2018 Are You Sexually Active? Yes Information not available 12/30/2018 Do You Or Have You Ever Used Smokeless Tobacco? Never Used Smokeless Tobacco Information not available 06/03/2019 Do You Use Any Illicit Or Recreational Drugs? Yes Marijuana Information not available 02/05/2024 Has Tobacco Cessation Counseling Been Provided? Yes [email or web address] Information not available 08/14/2023 On What Date Was Tobacco Cessation Counseling Provided? 03/05/2024 Information not available 03/05/2024 Sex: Male Functional Status None recorded. Mental Status None recorded. Family History Relationship Description Onset Age of this Age Resolved Age Notes LastModified by Organization Details LastModified Time Mother Thyroidectom y [email or web address] Not available 2018 14:56:59 Notes:Father unknown history Medical History Condition Response Coronary Artery Disease N Other N Atrial Fibrillation N High Blood Pressure N Kidney or Bladder Problems N Thyroid Problems N GI Problems N Blood Clots N COPD N Depression N Skin Problems N Anemia N Heart Attack ([place]) N Diabetes N Anxiety Disorder N Muscle, Joint, or Bone Problems N Seizures/Epilepsy N Acid Reflux (GERD) N Cancer N Stroke N Allergies N Asthma N High Cholesterol N Hepatitis N Liver Disease N Headaches N Osteoporosis N Heart Failure N Immunizations Vaccine Type Date Status Note Provider Nam e and Address Organization Details Recorded Time Tdap 7 completed Ferdinand Shin PA-C Attn: [address] [place], [place], [address] [place] [address], [place] [facility] 06/03/2019 12:23:22 Pneumococcal conjugate PCV 13 0 completed Nancie Hillman RN null, [place] - [facility] 05/03/2020 15:58:33 COVID-19, mRNA, LNP-S, PF, 30 mcg/0.3 mL dose 1 completed Ferdinand Shin PA-C Attn: Account[address] [place], [place], [address] [place] [address], [place] [facility] 11/01/2020 11:03:27 COVID-19, mRNA, LNP-S, PF, 30 mcg/0.3 mL dose 1 completed Ferdinand Shin PA-C Attn: Accounting[address] [place], [place], [address] [place] [address], [place] [facility] 11/01/2020 11:03:39 Influenza, split virus, quadrivalent, preservative 9 completed Not Available [facility] 06/14/2019 02:51:03 Influenza, split virus, quadrivalent, preservative 0 completed Nancie Hillman RN null, [place] - [facility] 05/03/2020 14:33:21 Influenza, high-dose, trivalent, PF 4 completed Erin Banks MA allen, [facility] 02/13/2024 15:13:09 Past Encounters Encounter ID Performer Location Encounter Start Date Encounter Closed Date Diagnosis/Indication Diagnosis SNOMED-CT Code Diagnosis ICD10 Code Diagnosis Note [id number] Ferdinand Shin PA-C [facility] () [address] [place] [address] 12/17/2018 14:49:41 12/18/2018 09:42:04 Human immunodeficiency virus infection 82402520 B20 28 y/o male reporting a Dx of HIV 11/20/2018 ([facility], [place], [place]).As per pt, sought testing after learning a partner cheated. Prior testing was June 2015.Risk Factor: +GBMSMMrAydee Marie is HAART naive He denied a h/o MTB/LTBI, syphilis, Hep B, Hep C He is feeling well today and denied changes in vision, frequent or severe headaches, fevers, night sweats, excessive fatigue, LAD, odynophagi a, cough, diarrhea or rash. Mr. Marie is here today to establish HIV care with [facility] . Plan:Non-f asting blood draw this afternoon. Please use condoms with all sex acts RTC 2 weeks for follow up. Body mass index 30+ - obesity 193923291 Z68.32 BMI: 32 Adult heal th examination 795050129 Z00.01 We discusse Mr. Marie establishi care with a PCP. [id number] Ferdinand Shin PA-C [facility] () [address] [place] [address] 12/30/2018 13:38:08 12/30/2018 15:12:49 Human immunodeficiency virus infection 11189078 B20 November 2018: CD4+: 993 (38%) VL: 24 K copies4-Cl ass Genotype: Rubio-sensit claudia Mr. Marie is here today for a scheduled follow up clinic appointnya barraza. He completed his initial HIV blood draw two weeks ago and is here today to discuss the results. He is feeling well today and denied changes in vision, frequent or severe headaches, fevers, night sweats, excessive fatigue, LAD, odynophagi a, cough, diarrhea or rash. He has active [place] and is ready to begin ART. Plan:Initi ating HAART: Rx Biktarvy.Stan Marie has the [facility] pharmacy phone number and plans to call later today to set up shipment. Please use condoms with all sex acts. RTC 6 weeks for follow up. Body mass index 30+ - obesity 343531700 Z68.32 BMI: 32 Adult heal th examination 182471809 Z00.01 We discussed Mr. Marie [facility] with a PCP. [id number] Ferdinand Shin PA-C [facility] () [address] [place] [address] 02/10/2019 14:05:12 02/10/2019 15:24:38 Human immunodeficiency virus infection 79657743 B20 November 2018: CD4+: 993 (38%) VL: 24 K copies4-Cl ass Genotype: Rubio-sensit claudia Mr. Marie is here today for a scheduled follow up clinic appointmen t. He reported no missed doses of ART over the past five days. He mentioned that he will, intermitte ntly, experience gi upset about twenty minutes after I take it. He is feeling well today and denied changes in vision, frequent or severe headaches, fevers, night sweats, excessive fatigue, LAD, odynophagi a, cough, diarrhea or rash. Plan:Blood draw todayConti nue Biktarvy-- suggested he take this at bedtime as a way to avoid any gi upset; he will consider Please use condoms with all sex acts. influenza vaccine administer ed today. RTC May 2019 for follow up. Body mass index 30+ - obesity 476077406 Z68.32 BMI: 32 [id number] Ferdinand Shin PA-C [facility] () [address] [place] [address] 06/03/2019 11:50:02 06/03/2019 16:13:06 Human immunodeficiency virus infection 80213061 B20 January 2019: CD4+: 1155 (46%) VL: < 20 copies Mr. Marie is here today for a scheduled follow up clinic appointmen t. He reported no missed doses of ART over the past five days and is now tolerating the Biktarvy without side effects (is now taking each dose with a meal). He is feeling well today and denied changes in vision, frequent or severe headaches, fevers, night sweats, excessive fatigue, LAD, odynophagi a, cough, diarrhea or rash. Plan:Non-F asting Blood draw todayConti nue Biktarvy Please use condoms with all sex acts. RTC October 2019 for follow up. Body mass index 30+ - obesity 566102215 Z68.32 BMI: 34.8 Plan:Lifes tyle changes discussedW ill check an A1C today [id number] Yasmeen Wilson MA [facility] [address] [place] [address] 06/09/2019 10:56:06 06/09/2019 11:40:45 [id number] Ferdinand Shin PA-C [facility] () [address] [place] [address] 11/03/2019 09:46:47 11/03/2019 13:05:24 Human immunodeficiency virus infection 59505035 B20 Phone Visit (follow-up ) May 2019: CD4+: 1498 (43%) VL: < 20 copies This is a scheduled follow-up appointmen t for Mr. Marie. He reported no missed doses of ART over the past five days and is tolerating the Biktarvy without side effects. He is feeling well today and denied changes in vision, frequent or severe headaches, fevers, excessive fatigue, anorexia, LAD, odynophagi a, cough, diarrhea or rash. Rx coverage: [place] Plan:Will RTC later today to complete a blood draw. We will also administer the PCV13. Continue Biktarvy Please use condoms with all sex acts. RTC March 2020 for follow up. Body mass index 30+ - obesity 569267922 Z68.32 BMI: 32.6 (reported a wt of 190 lbs this morning) Plan:Lifes tyle changes discussedW ill check an A1C today Fatigue 78505870 R53.83 Reporting several weeks of fatigue, racing heart and night sweats.+FH x of hyperthyro idism (mother).C affeine intake is minimal. Plan:Will check a TSH today. [id number] JANNY GOMEZ NP Dinesh montejo [address] [place] [address] 11/07/2019 09:39:53 11/10/2019 09:33:37 Exposure to SARS-CoV-2 769253616 Z20.585 [id number] Ferdinand Shin PA-C [facility] () [address] [place] [address] 05/03/2020 09:52:18 05/03/2020 12:53:46 Human immunodeficiency virus infection 69095949 B20 Phone Visit (follow-up ) October 2019: CD4+: 1351 (39%) VL: < 20 copies This is a scheduled follow-up appointmen t for Mr. Marie. He reported no missed doses of ART over the past five days and is tolerating the Biktarvy without side effects. He is feeling well today and denied changes in vision, frequent or severe headaches, fevers, excessive fatigue, anorexia, LAD, odynophagi a, cough, diarrhea or rash. Rx coverage: [place] Plan:Will RTC later today to complete a blood draw. We will also administer the influenza vaccine. Continue Biktarvy Please use condoms with all sex acts. RTC October 2020 for follow-up. [id number] Ferdinand Shin PA-C [facility] () [address] [place] [address] 11/01/2020 09:57:28 11/02/2020 16:25:18 Human immunodeficiency virus infection 62129983 B20 Phone Visit (follow-up ) April 2020: CD4+: 1254 (33%) VL: < 20 copies/mL This is a scheduled follow-up appointmen t for Mr. Marie. He reported no missed doses of ART over the past five days and is tolerating the Biktarvy without side-effec ts. He is feeling well today and denied changes in vision, frequent or severe headaches, fevers, excessive fatigue, anorexia, LAD, odynophagi a, cough, diarrhea or rash. Rx coverage: [place] Of note, he received two doses of the [employer]Tracker covid-19 vaccine (2020). Plan: Will return to the [facility] location later today to complete a blood draw. Continue Biktarvy Please use condoms with all sex acts. Will follow-up April 2021. Serum crea tinine above reference range 243351999 R79.April: Creat: 1.34 mg/dL He is on a TAF-based HIV regimen. Plan: Will monitor. [id number] Ferdinand Shin PA-C [facility] () [address] [place] [address] 05/09/2021 09:54:54 05/10/2021 16:57:05 Human immunodeficiency virus infection 20950105 B20 Phone Visit (follow-up ) October 2020: CD4+: 1066 (41%) VL: < 20 copies/mL This is a scheduled follow-up appointmen t for Mr. Marie. He reported no missed doses of ART over the past five days and is tolerating the Biktarvy without side-effec ts.He is interested in switching to Cabenuva, when available. He is feeling well today and denied changes in vision, frequent or severe headaches, fevers, excessive fatigue, anorexia, LAD, odynophagi a, cough, diarrhea or rash. Rx coverage: [place] Of note, he received two doses of the Pfizer covid-19 vaccine (2020). Plan:Will return to the [facility] location later today to complete a blood draw.Will begin paperwork to get pt switched to Cabenuva. For now, continue Biktarvy Please use condoms with all sex acts.Negin Arnold getting the covid-19 booster--h e plans to do so at his local [facility]. Will follow-up October 2021. [id number] JANNY GOMEZ NP [facility] ([facility]) [address] [place] [address] 12/26/2021 13:33:34 12/28/2021 11:21:40 Human immunodeficiency virus infection 69073445 B20 Most recent labs 08/24/21 CD4= >1200 VL=<20Risk Counseling : Today's instructio ns / counseling includes use of condoms with all sex acts.Treat ment Adherence Counseling : Today's instructio ns / counseling includes continuati on ART as prescribed , and keeping medical appointmen ts. Pt to f/u in 6 mos [id number] JANNY GOMEZ NP [facility] () [address] [place] [address] 07/04/2022 12:11:20 07/10/2022 07:40:20 Human immunodeficiency virus infection 39071208 B20 Most recent labs 12/26/21 CD4= 1130 VL=<20Risk Counseling : Today's instructio ns / counseling includes use of condoms with all sex acts.Treat ment Adherence Counseling : Today's instructio ns / counseling includes continuati on ART as prescribed , and keeping medical appointmen ts. Pt to f/u in 6 mos Body mass index 30+ - obesity 910340380 Z68.35 Obesity 448128243 E66.9 Hyperlipidemia 46443691 E78.5 [id number] JANNY GOMEZ NP [facility] () [address] [place] [address] 01/02/2023 10:49:10 01/09/2023 13:21:28 Human immunodeficiency virus infection 27771005 B20 Most recent labs 12/26/21 CD4= 1130 VL=<20Risk Counseling : Today's instructio ns / counseling includes use of condoms with all sex acts.Treat ment Adherence Counseling : Today's instructio ns / counseling includes continuati on ART as prescribed , and keeping medical appointmen ts. - Continue to take Biktarvy; D/w pt importance of U=U- Labs obtained prior to appointmen t; CD4 2061; Viral Load <20- No labs needed today- F/u in 6 mo Body mass index 30+ - obesity 728919494 Z68.35 - BMI of 35.9 Hyperlipidemia 97132050 E78.5 - Atorvastat in 20 mg PO daily was started earlier this year- Recent lipid panel with Tcholester ol 125.8, TAG 135, HDL 44.8, and LDL of 57.4- LDL is at goal, being at least a 50% reduction in LDL High risk sexual behavior 736146344 Z72.51 Obesity 873068360 E66.9 [id number] JANNY GOMEZ, VINICIO [facility] ([facility]) [address] [place] [address] 08/14/2023 10:57:14 08/27/2023 16:20:36 Human immunodeficiency virus infection 90941134 B20 Pt treated for Orapharyng eal GC, Clam results to followRisk Counseling : Today's instructio ns / counseling includes use of condoms with all sex acts.Treat ment Adherence Counseling : Today's instructio ns / counseling includes continuati on ART as prescribed , and keeping medical appointmen ts. - Continue to take Biktarvy; D/w pt importance of U=U- Labs obtained prior to appointmen t; CD4 2061; Viral Load <20- F/u in 6 mo Body mass index 30+ - obesity 374948139 Z68.35 - BMI of 35.9 Obesity 610052066 E66.9 Smoker 48926944 F17.200 Pharyngitis 385602780 J0 2.9 High risk sexual behavior 708317033 Z72.51 [id number] SCAR LEDEZMA [facility] [address] [place] [address] 02/05/2024 10:22:14 02/05/2024 11:03:01 Human immunodeficiency virus infection [id number] B20 diagnosed in 2016follow s with Janny Xie and is in the [facility] program Left ventr icular hypertrophy 24281436 I51.[address] Kathia benítez to make f/u appt, unknown last visit Elevated blood-pressure reading without diagnosis of hypertension 323317336 R03.0 150/90 e1chczc lisinopril 40advised to check BP at home, goal BP <130/80, f/u with BP log in 1 wk Obesity 010195704 E66.8 BMI 35.7routin e labsdiscus sed increasing exercise and healthier food options, high protein, low fat diet Mixed anxi ety and depressive disorder 996062580 F41.8 PHQ 4, TERESITA 21stopped driving due to fear earlier this yeartried paxil and zoloft w/o reliefmore anxious since HIV diagnosise ncouraged to reach to counseling case manager for counseling , pt states he will think about itstart buspirone low dose, advised of ADRf/u in 1 mo Obstructiv e sleep apnea syndrome 23708108 G47.33 requested sleep study from earlier this year, ordered by Cardio [id number] JANNY GOMEZ NP [facility] ([facility] [address] [place] [place] [address] 02/12/2024 13:53:45 02/15/2024 15:26:15 Human immunodeficiency virus infection 05341050 B20 Risk Counseling : Today's instructio ns / counseling includes use of condoms with all sex acts.Treat ment Adherence Counseling : Today's instructio ns / counseling includes continuati on ART as prescribed , and keeping medical appointmen ts.pt will f/u with me in 6 wks has a f/u appt with PCP next month will have labs drawn at that appt.- Continue to take Biktarvy; D/w pt importance of U=U Body mass index 30+ - obesity 944623940 Z68.35 - BMI of 35.9 Obesity 235738102 E66.8 Smoker 00964831 F17.200 Active or passive immunization 978213560 Z23 High risk sexual behavior 419118822 Z72.51 Doxycyclin e Post-Expos ure Prophylaxi s (DoxyPEP) means taking the antibiotic doxycyclin e after sex, to prevent getting a sexually transmitte d infection (STI). It is a morning-af ter pill for STIs. Studies have shown that taking DoxyPEP reduces your chance of getting syphilis and chlamydia by about two-thirds , especially if you are a transgende r woman (TGW) or a man who has sex with men (MSM).It will be most effective if you take it within the first 24 hours, so treat it like a morning-af ter medication . Although it is safe to take daily, do not take more than 200mg in one day. Take it with 8 oz of water and food, if possible. Milk and vitamins containing positive cations (e.g., calcium, zinc, magnesium) should be avoided within 2 hours of taking doxycyclin e, [id number] SCAR LEDEZMA [facility] [address] [place] [address] 03/05/2024 08:48:58 03/05/2024 09:09:17 Elevated blood-pressure reading without diagnosis of hypertension 466624663 R03.0 03/05/24: BP 130/87, 140/90, took lisinopril 2 hrs before apptadvise d to check BP at home, goal BP <130/80, f/u with BP log in 1 wk 02/12/24: 150/90 [id number] lisinopril 40advised to check BP at home, goal BP <130/80, f/u with BP log in 1 wk Human immunodeficiency virus infection 88252051 B20 diagnosed in 2016follow s with Janny Xie and is in the [employer]gr[facility] od work requested per ID Mixed anxi ety and depressive disorder 480927808 F41.8 03/05/24: PHQ 0, buspirone making him feel dizzy, no difference with anxiety, stop buspironet rial wellbutrin , advised pt of ADRf/u in 1 mo 02/12/24: PHQ 4, TERESITA 21stopped driving due to fear earlier this yeartried paxil and zoloft w/o reliefmore anxious since HIV diagnosise ncouraged to reach to counseling case manager for counseling , pt states he will think about itstart buspirone low dose, advised of ADRf/u in 1 mo Obstructiv e sleep apnea syndrome 50281499 G47.33 requested sleep study from earlier this year, ordered by Cardiohave not received yet Hyperlipidemia 95372382 E78.5 02/12/24: LDL 131 on ator 20, increase to 40re-check today Serum crea tinine above reference range 384567286 R79.89 01/2024: Cr 1.56re-lorene ck today [id number] SCAR LEDEZMA [facility] [address] [place] [facility] [place] [address] 04/04/2024 09:29:44 04/04/2024 09:52:31 Mixed anxiety and depressive disorder 968907502 F41.8 04/04/24: better mood, friendlier , doing more stuff around the house, anxiety is still not under controlwou ld like to c/w 150 mg wellbutrin , repeat TERESITA at f/u visit 03/05/24: PHQ 0, buspirone making him feel dizzy, no difference with anxiety, stop buspironet rial wellbutrin , advised pt of ADRf/u in 1 mo 02/12/24: PHQ 4, TERESITA 21stopped driving due to fear earlier this yeartried paxil and zoloft w/o reliefmore anxious since HIV diagnosise ncouraged to reach to counseling case manager for counseling , pt states he will think about itstart buspirone low dose, advised of ADRf/u in 1 mo Serum crea tinine above reference range 700429269 R79.89 04/04/24: Cr 1.3, eGFR 74 01/2024: Cr 1.56re-lorene ck today Hyperlipidemia 14372313 E78.5 04/04/24: LDL 73, c/w ator 40 02/12/24: LDL 131 on ator 20, increase to 40re-check today Obstructiv e sleep apnea syndrome 96575950 G47.33 [employer] not in networksen t to [facility], advised pt to call Essential hypertension 67291822 I10 04/04/24: BP 130s/90s at home, add HCTZ 12.5advise d to check BP at home, goal BP <130/80, f/u with BP log in 1 wk 03/05/24: BP 130/87, 140/90, took lisinopril 2 hrs before apptadvise d to check BP at home, goal BP <130/80, f/u with BP log in 1 wk 02/12/24: 150/90 [id number] lisinopril 40advised to check BP at home, goal BP <130/80, f/u with BP log in 1 wk Health Concerns Section Related Observation LastModified by Organization Detai ls LastModified Time None Recorded Concern Status LastModified by Organization Details LastModified Time None Recorded Advance Directives Directive None Recorded Payers Encounter Date Sequence Insurance Name Policy Number Policy Aguillon Covered Member ID Aguillon Member ID Guarantor Name 08/14/2023 1 [employer] [id number] Jose Angel Maire [id number] [facility] 02/05/2024 1 [employer] [id number] [facility] [id number] 8 [facility] 02/12/2024 1 [employer] [id number] [facility] [id number] 8 [facility] 03/05/2024 1 [employer] [id number] [facility] [id number] 8 [facility] 04/04/2024 1 [employer] [id number] [facility] [id number] 8 [facility] Notes Date Note Type Note Provider Name and Address Organization Details Recorded Time 08/14/2023 text/html This is a schedu led follow up for management of HIV.Last labs:{{-- 12/21/2022 #}} CD4 2061; Viral Load <20Other yearly labs done on 12/21/2022 were negative: RPR, CT, NG, Trich, Quantiferon, HCV, Toxassure (Other than THC), U/A, CMP, and lipid panel.Missed doses of ART since last visit:{{-- 0#}}Side effects: {{-- --none#}}Sexual activity:{{-- Partne rs in the last 12 mo 20 men; Sometimes condoms#}}Social History:{{-- N#}}Cov id Vaccine:{{--}}Pt complains of sore throat x several months he states that he went to his pCP and was neg for strep. He does admits to unprotected oral sex with more that one partner.Feeling well today and denied changes in vision, frequent or severe headaches, fevers, night sweats, excessive fatigue, odynophagia, cough, diarrhea or rash. Also, denied reflux/heartburn symptoms. Denies signs or symptoms of monkey pox infection including fever, chills, swollen lymph nodes, or papulopustular rash anywhere on body. JANNY GOMEZ NP Attn: Accounting[address] [facility], [place], [address], [facility] 08/14/2023 14:48:12 02/05/2024 text/html Pt presents to establish care as a new patient. H/o HIV, diagnosed in 2015, follows with VINICIO Gomez and is in the [facility] programs. States that he was diagnosed with enlargement in his heart and follows with Dr. Pressley. Denies fever, chills, chest pain, SOB, n/v/d, abd pain, dizziness, weakness, or headaches. SCAR LEDEZMA Attn: Accounting[address] [facility], [place], [address], [facility] 02/06/2024 10:46:53 02/12/2024 text/html This is a schedu led follow up for management of HIV. He was previously dx with orapharyngeal GC and treated. He is on Doxy PEP. He recent labs per his PCP indicate decreased renal function which was new. Pt denies any symptoms.Last labs:{{-- 12/21/2022 #}} CD4 2061; Viral Load <20 Missed doses of ART since last visit:{{-- 0#}}Side effects: {{-- --none#}}Sexual activity:{{-- Partne rs in the last 12 mo 20 men; Sometimes condoms#}}Social History:{{-- N#}}Cov id Vaccine:{{--}} Feeling well today and denied changes in vision, frequent or severe headaches, fevers, night sweats, excessive fatigue, odynophagia, cough, diarrhea or rash. Also, denied reflux/heartburn symptoms.Pt states that they have access to food daily, has access to transportation, and is employed or has a regular source of income.Denies signs or symptoms of monkey pox infection including fever, chills, swollen lymph nodes, or papulopustular rash anywhere on body. JANNY GOMEZ NP Attn: Accounting[address] [facility], [place], [address], [place] [facility] 02/12/2024 15:44:32 03/05/2024 text/html Pt presents for test result f/u and anxiety. Reports that he has been taking the buspirone daily, but is causing dizziness and no improvement with anxiety. SCAR LEDEZMA Attn: Accounting[address] [facility], [place], [address], [place] [facility] 03/05/2024 11:00:43 04/04/2024 text/html Pt presents for 1 mo f/u. Reports improvement in mood and motivation with wellbutrin, anxiety still not under control. States that he has been checking BP at home, 130s/90s consistently with taking lisinopril 40. SCAR LEDEZMA Attn: Accounting[address] [facility], [place], [address], [facility] 04/04/2024 09:58:07
--- OUTSIDE RECORDS SUMMARY | 2024-09-15 20:15 | XMS_ITS | CONTINUITY OF CARE DOCUMENT ---
Author Name agustina berrios Address Unknown Organization [facility] Address [address] [place] [address] [address] [place] [address] Phone [phone] Care Team Providers Care Outside Dealer Sales Representative Name Role Phone Abdiel Pressley MD Unavailable [phone] TAIWO HOLLAND PA-C Unavailable TAIWO HOLLAND PA-C Unavailable PROBLEMS Condition Status Date Provider Notes Asymmetric septal hypertrophy active Abdiel Pressley MD Screening active Abdiel Pressley MD Vitamin D deficiency active Abdiel Mcclain Obesity active Abdiel Pressley MD Hyperlipidemia;with high crp and low lpa active Abdile Pressley MD HIV infection active Abdiel Pressley MD Anxiety disorder active Abdiel Pressley MD covid 19;2020;HAD VACCINE active Abdiel hicks MD Chest pain, atypical active Abdiel Mcclain Dyspnea on exertion completed - Abdiel Pressley MD Sleep apnea active Abdiel Pressley MD Palpitations;NML TSH active Abdiel Mcclain neg hotlere B12 deficiency active Abdiel Pressley MD neg iron Hypertension, borderline active Abdiel woods MD ENCOUNTERS Date Type Provider Location Encounter Diag nosis - In-person encounter Office Visit Abdiel Pressley MD [place] [facility] Dyspnea on exertionHypertension, borderline - In-person encounter Office Visit Abdiel Pressley MD [place] [facility] Palpitations;NML TSHB12 deficiency - In-person encounter Office Visit Abdiel Pressley MD [place] [facility] ObesityHyperlipidemia;wi th high crp and low lpaHIV infectionAnxiety disordercovid ;HAD VACCINEChest pain, atypicalSleep apneaPalpitations;NML TSH VITAL SIGNS Date Observation Value Provider Body Mass Index (Ratio) 32.78 kg/m2 Alize Pressley MD blood pressure, cuff size regular Ja rr blood pressure, diastolic 91 mm[Hg] Ja rret blood pressure, systolic 142 mm[Hg] Jar ret pulse rate 68 /min Ricardo y respiratory rate E&M 12 /min Ricardo oxygen saturation, oximetry 98 % Ricardo weight E&M 191 [lb_av] Ricardo y height E&M 64 [in_i] Ricardo y Body Mass Index (Ratio) 36.04 kg/m2 Alize Pressley MD weight E&M 210 [lb_av] Abdiel Mcclain weight E&M 206 [lb_av] Clarice Burgos in Body Mass Index (Ratio) 35.36 kg/m2 Alize Pressley MD blood pressure, diastolic -1 mm[Hg] Li nkLogkatarzyna blood pressure, systolic 137 mm[Hg] Dior kLogkatarzyna blood pressure, diastolic 88 mm[Hg] [facility] c[facility] Menendez blood pressure, systolic 137 mm[Hg] Patsy Menendez oxygen saturation, oximetry 98 % Susana Menendez pulse rate 64 /min Susana Menendez weight E&M 206 [lb_av] Susana Menendez height E&M 64 [in_i] Susana Menendez respiratory rate E&M 20 /min Susana Mcclain treva ALLERGIES No Known Drug Allergies RESULTS Date Observation Value Provider Reference Range Interpretation Location hemoglobin A1C, blood, as % of total hemoglobin 5.3 % OF TOTAL HGB [facility] <5.7 Normal thyroid stimulating hormone, serum 1.54 u[IU]/mL [facility] 0.40-4.50 Normal B-12, serum 263 pg/mL [facility] 200-1100 Normal thyroxine, serum, free 1.1 ng/dL [facility] 0.8-1.8 Normal triiodothyronine (T3), serum 101 ng/dL [facility] 76-181 Normal ferritin, serum 125 ng/mL [facility] 38-380 Normal C-reactive protein, by highly sensitive test 3.3 mg/L [facility] High basophils as percent of blood leukocytes 0.8 % [facility] Normal eosinophils as percent of blood leukocytes 2.4 % [facility] Normal monocyte count, blood 7.4 % [facility] Normal lymphocyte count, blood 43.5 % [facility] Normal neutrophils as percent of blood leukocytes 45.9 % [facility] Normal basophils, absolute, manual 70 cells/mcL [facility] 0-200 Normal eosinophils, absolute, manual 211 cells/mcL [facility] 15-500 Normal monocytes, absolute, manual 651 cells/mcL [facility] 200-950 Normal lymphocytes, absolute 3828 CELLS/UL [facility] 850-3900 Normal Absolute Neutrophil count 4039 cells/mcL [facility] 8355-5026 Normal mean platelet volume 10.3 fL [facility] 7.5-12.5 Normal platelet count 278 THOUSAND/UL [facility] 140-400 Normal red blood cell distribution width 12.5 % [facility] 11.0-15.0 Normal mean corpuscular hemoglobin concentration, RBC 34.5 G/DL [facility] 32.0-36.0 Normal mean corpuscular hemoglobin, RBC 31.0 pg [facility] 27.0-33.0 Normal mean corpuscular volume, RBC 89.9 fL [facility] 80.0-100.0 Normal hematocrit, blood 41.7 % [facility] 38.5-50.0 Normal hemoglobin electrophoresis, blood 14.4 [facility] 13.2-17.1 Normal erythrocyte (RBC) count 4.64 MILLION/UL [facility] 4.20-5.80 Normal leukocyte (white blood cells) count, blood 8.8 THOUSAND/UL [facility] 3.8-10.8 Normal D-dimer quantitative mcg/mL <0.19 mcg/mL FEU [facility] <0.50 Normal alanine aminotransferase (SGPT), serum 23 1/L [facility] 9-46 Normal aspartate aminotransferase (SGOT), serum 17 1/L [facility] 10-40 Normal alkaline phosphatase, serum 72 1/L [facility] 36-130 Normal bilirubin, serum, total 0.4 mg/dL [facility] 0.2-1.2 Normal albumin/globulin ratio, serum 1.8 (calc) [facility] 1.0-2.5 Normal globulins, serum, total 2.7 G/DL (CALC) [facility] 1.9-3.7 Normal albumin, serum 4.8 g/dL [facility] 3.6-5.1 Normal protein, total, serum 7.5 g/dL [facility] 6.1-8.1 Normal calcium, serum 9.9 mg/dL [facility] 8.6-10.3 Normal carbon dioxide, venous blood 28 mmol/L [facility] 20-32 Normal chloride, serum 103 mmol/L [facility] 98-110 Normal potassium, serum 4.6 mmol/L [facility] 3.5-5.3 Normal sodium, serum 138 mmol/L [facility] 135-146 Normal urea nitrogen/creatinine ratio, serum NOT APPLICABLE (calc) [facility] 6-22 creatinine, serum 1.11 mg/dL [facility] 0.60-1.26 Normal urea nitrogen, blood 11 mg/dL [facility] 7-25 Normal blood glucose, random 95 mg/dL [facility] 65-99 Normal NT-pro BNP 17 [facility] Normal iron saturation percent, serum 25 % (CALC) [facility] 20-48 Normal iron binding capacity, total 296 MCG/DL (CALC) [facility] 250-425 Normal iron, serum 74 ug/dL [facility] 50-180 Normal microalbumin/creati nine ratio, urine 5 MCG/MG CREAT [facility] <30 Normal microalbumin/total urine volume 3 mg/L [facility] Units converted. See lab report for original value. Normal creatinine, random, urine 63 mg/dL [facility] 20-320 Normal cholesterol, non-HDL, total 90 MG/DL (CALC) [facility] <130 Normal cholesterol/HDL ratio, serum, percent 2.9 (calc) [facility] <5.0 Normal LDL cholesterol, serum 72 MG/DL (CALC) [facility] Normal triglyceride, serum, fasting 95 mg/dL [facility] <150 Normal HDL cholesterol, serum 48 mg/dL [facility] > OR = 40 Normal cholesterol, serum 138 mg/dL [facility] <200 Normal HISTORY OF MEDICATION USE Medication Status Instructions Dates Provider Indications Com ments ergocalciferol (vitamin D2) 1,250 mcg (50,000 unit) capsule active TAKE 1 CAPSULE BY MOUTH ONCE A WEEK 8 Abdiel Pressley MD cyanocobalamin (vitamin B-12) 1,000 mcg capsule active Take 1 capsule by mouth once a day 8 Abdiel Pressley MD Biktarvy 50-200-25 mg tablet active TAKE 1 TABLET BY MOUTH EVERY DAY Susana Menendez atorvastatin 20 mg tablet active TAKE 1 TABLET BY MOUTH EVERY DAY AT BEDTIME Susana Menendez paroxetine HCl 10 mg tablet active Susana Menendez SOCIAL HISTORY Date Observation Value Provider smoking status Never smoker Susana Menendez INSURANCE PROVIDERS Payer name Policy type / Coverage type Jose red green party ID [employer] insurance company [id number] ADVANCE DIRECTIVES Name Date DISCUSSED - NO DECISION MADE TREATMENT PLAN Date Name Performer [id number],BAbdiel MD [id number],S, m allen Pressley MD [id number],SAbdiel Serot tianna SEBASTIAN [id number],BAbdiel Serot tianna SEBASTIAN [id number],S, n eg ta Pressley MD [id number],BAbdiel Serot a [id number],BAbdiel Serot a [id number],BAbdiel Serot a [id number],SAbdiel Serot a [id number],S, n eg uarcr and pronbp and efgr and dd and tsh and a1c a nd rajinder Pressley MD [id number],SAbdiel Serot tianna SEBASTIAN [id number],SAbdiel Serot a [id number],BAbdiel Serot a [id number],S, Abdiel Serot a [id number],S, Abdiel Serot a [id number],S, n eg uarcr and pronbp and efgr and dd and tsh and a1c a nd rajinder Abdiel Serottianna SEBASTIAN [id number],S,on statin Rigo Pressley MD [id number],S, Abdiel Serot a [id number],S, n eg stress Abdiel Serota [id number],S, m ild Abdiel Serota [id number],C,mild Abdiel S gary SEBASTIAN [id number],C,neg stress Castillo rvey Serota [id number],C,n eg uarcr and pronbp and efgr and dd and tsh and a1c and iron Abdiel Serota [id number],S, Abdiel Serot a [id number],S, Abdiel Serot a [id number],B, Abdiel Serot a [id number],S, Abdiel Serot a [id number],B, Abdiel Serot a [id number],S, Abdiel Serot a [id number],N, Abdiel Serot a [id number],N,sx Abdiel hicks MD Cardiology Abdiel Pressley MD Cardiology: m ild Abdiel Pressley MD Cardiology Abdiel Serottianna SEBASTIAN Cardiology Abdiel Serottianna SEBASTIAN Cardiology: n eg stress Abdiel Serottianna SEBASTIAN Cardiology Abdiel Serottianna SEBASTIAN Cardiology Abdiellisa Pressley MD Cardiology Abdiel Pressley MD Cardiology Abdiel Pressley MD Cardiology: n eg uarcr and pronbp and efgr and dd and tsh and a1c a nd rajinder Pressley MD TeleHealth Abdiel Pressley MD TeleHealth Abdiel Pressley MD TeleHealth Abdiel Pressley MD TeleHealth Abdiel Pressley MD TeleHealth Abdiel Pressley MD TeleHealth: n eg uarcr and pronbp and efgr and dd and tsh and a1c a nd rajinder Pressley MD TeleHealth:on statin Abdiel woods MD TeleHealth Abdiel Pressley MD TeleHealth: n eg stress Abdiel Prsesley MD TeleHealth: m ild Abdiel Pressley MD :mild Abdiel Pressley MD :neg stress Abdiel Pressley MD :neg uarcr and pronb p and efgr and dd and tsh and a1c and iron Abdiel Pressley MD Cardiology Abdiel Pressley MD Cardiology Abdiel Pressley MD Cardiology Abdiel Pressley MD Cardiology Abdiel Pressley MD Cardiology Abdiel Pressley MD Cardiology Abdiel Pressley MD Cardiology Abdiel Pressley MD Cardiology:sx Abdiel Pressley MD Date Name LIPID PANEL Sleep Study Titratio n DLCO - 27706 FRC - 11899 FVC - 98598 Holter Monitor 24 Hr Sleep Study Home Troponin T D-DIMER, QUANTITATIV E DLCO - 91753 FRC - 43660 FVC - 06312 VITAMIN B12 Vitamin D, 25-Hydrox y IRON AND TOTAL IRON BINDING CAPACITY FERRITIN CBC (INCLUDES DIFF/P LT) TSH, free T4, total T3 Lipoprotein (a) LIPID PANEL Microalb/Creatinine Urine, Random HEMOGLOBIN A1c CRP, high sensitivit y PROBNP, N TERMINAL COMPREHENSIVE METABO LIC PANEL, W/EGFR Stress Routine CXR- PA/Lat Complete Echo HISTORY OF PROCEDURES Procedure Date Procedure Name Provider Procedure Notes S tatus EKG Abdiel Pressley MD complete d
--- OUTSIDE RECORDS SUMMARY | 2024-09-15 20:15 | XMS_ITS | Clinical Summary ---
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 Gender Identity Not on file Sexual Orientation Not on file Plan of Treatment Health Maintenance Due Date Last Done Comments Hepatitis C Virus (HCV) Screening 1990 TdaP Immunization 1990 Hepatitis B Immunization (1 of 3 - 19+ 3-dose series) 2009 Influenza Immunization (#1) 2024 SARS-COV-2 Immunization (2023- season) 2024 Respiratory Syncytial Virus (RSV) Immunization (Adult) (1 - 1-dose 75+ series) 2065 Meningococcal Immunization (ACWY) Aged Out No longer eligible based on patient's age to complete this topic Pneumococcal Immunization Combined Aged Out No longer eligible based on patient's age to complete this topic Rotavirus Immunization Aged Out No lo nger eligible based on patient's age to complete this topic
[2024-09-15 20:17] VITALS: BP 145/111; PULSE 120; RESP 20; O2SAT 97
--- NOTE | 2024-09-15 20:22 | ECG_ITS ---
Test Date: 2024-09-15 20:27:00 Measurements Intervals [place] Rate: 118 P: 19 MI: 150 QRS: 55 QRSD: 80 T: 2 QT: 294 QTc: 413 Interpretive Statements SINUS TACHYCARDIA BORDERLINE ST-T WAVE ABNORMALITY- INFERIOR LEADS BASELINE ARTIFACT- II, III, AVR, AVL, AVF, V4-V6 ABNORMAL ECG No previous ECG available for comparison Electronically Signed On 09-16-2024 06:19:34 CDT by Zain Moody D.O.
[2024-09-15 20:32] VITALS: O2SAT 98
[2024-09-15] MEDS: LACTATED RINGERS 1,000 ML 999 ML IV CONT (20:36)
[2024-09-15] MEDS: dexAMETHasone SOD PHOS INJ 10 MG/ML 1 ML VIAL IV PUSH (20:36)
[2024-09-15] MEDS: ONDANSETRON INJ 4 MG/2 ML VIAL IV PUSH (20:44)
[2024-09-15 20:55] LABS: Basophils Absolute Auto 0.1 K/mm3 (0.0-0.1); Basophils Percent Auto 0.7 % (0.2-1.2); Eosinophils Percent Auto 0.1 % (0-4.4); Hematocrit 45.7 % (42.0-52.0); Hemoglobin 16.2 g/dL (14.0-18.0); Immature Granulocyte Absolute 0.05 K/mm3 (0.00-0.031); Immature Granulocyte Percent A 0.4 % (0-0.5); Lymphocytes Absolute Auto 2.05 K/mm3 (0.9-3.2); Lymphocytes Percent Auto 17.2 % (18.3-44.2); Mean Corpuscular HGB Conc 35.4 g/dl (32-36); Mean Corpuscular Hemoglobin 30.5 pg (26-34); Mean Corpuscular Volume 86.1 fl (80-100); Mean Platelet Volume 8.8 fl (7.4-10.4); Monocytes Absolute Auto 0.4 K/mm3 (0.1-0.6); Monocytes Percent Auto 2.9 % (2.6-8.5); Neutrophils Absolute Auto 9.4 K/mm3 (1.3-6.7); Neutrophils Percent Auto 78.7 % (45.5-73.1); Platelet Count Result 330 k/mm3 (150-375); Red Blood Count 5.31 M/mm3 (4.6-6.20); Red Cell Distribution Width 11.8 % (11.5-14.5); White Blood Count 11.9 K/mm3 (4.5-10.0)
[2024-09-15 21:06] LABS: Alanine Aminotransferase 81 U/L (6-50); Albumin Level 5.1 g/dL (3.5-5.1); Alkaline Phosphatase 92 U/L (38-126); Anion Gap 16 mmol/L (4-12); Aspartate Amino Transferase 53 U/L (17-59); Bilirubin,Total 1.2 mg/dL (0.2-1.3); Blood Urea Nitrogen 17 mg/dL (9-20); Calcium 8.7 mg/dL (8.4-10.2); Carbon Dioxide 24 mmol/L (22-30); Chloride 100 mmol/L (98-107); Estimated CRCL calculation 99 ml/min; Estimated Glomerular Filt Rate > 60; Glucose 137 mg/dL (65-110); Magnesium 2.1 mg/dL (1.6-2.3); Potassium 3.9 mmol/L (3.4-5.0); Sodium 140 mmol/L (137-145)
--- OUTSIDE RECORDS SUMMARY | 2024-09-15 21:15 | XMS_ITS | CONTINUITY OF CARE DOCUMENT ---
Author Name agustina berrios Address Unknown Organization [facility] Address [address] [place] [address] [address] [place] [address] Phone [phone] Care Team Providers Care Health Care Legal Assistant Name Role Phone Abdiel Pressley MD Unavailable TAIWO HOLLAND PA-C Unavailable TAIWO HOLLAND PA-C Unavailable PROBLEMS Condition Status Date Provider Notes Asymmetric septal hypertrophy active Abdiel Pressley MD Screening active Abdiel Pressley MD Vitamin D deficiency active Abdiel Mcclain Obesity active Abdiel Pressley MD Hyperlipidemia;with high crp and low lpa active Abdiel Pressley MD HIV infection active Abdiel Pressley [...] In-person encounter Office Visit Abdiel Pressley MD [facility] Dyspnea on exertionHypertension, borderline - In-person encounter Office Visit Abdiel Pressley MD [facility] Palpitations;NML TSHB12 deficiency - In-person encounter Office Visit Abdiel Pressley MD [facility] ObesityHyperlipidemia;wi th high crp and low [...] Normal Absolute Neutrophil count 4039 cells/mcL [employer] [id number] Normal mean platelet volume 10.3 fL [employer] [...] TAKE 1 TABLET BY MOUTH EVERY DAY uSsana Menendez atorvastatin 20 mg tablet active TAKE 1 TABLET BY MOUTH EVERY DAY AT BEDTIME Susana Menendez paroxetine HCl 10 mg tablet active Susana Menendez SOCIAL HISTORY Date Observation Value Provider smoking status Never smoker Susana Menendez INSURANCE PROVIDERS Payer name Policy type / Coverage type Jose red green party ID [employer] Choice [employer] insurance company [id number] ADVANCE DIRECTIVES Name Date DISCUSSED - NO DECISION MADE TREATMENT PLAN Date Name Performer [id number],BAbdiel MD [id number],S, m allen Pressley MD [id number],SAbdiel Serot tianna SEBASTIAN [id number],BAbdiel Serot tianna SEBASTIAN [id number],S, n eg ta Pressley MD [id number],BAbdiel Serot a [id number],BAbdiel Serot a [id number],BAbdiel Serot a [id number],SAbdiel Serot a [id number],S, n eg uarcr and pronbp and efgr and dd and tsh and a1c a nd rajinder Pressley MD [id number],SAbdiel Serot tianna SEBASTIAN [id number],SAbdiel Serot a [id number],BAbdiel Serot a [id number],S, Abdiel Serot a [id number],S, Abdiel Serot a [id number],S, n eg uarcr and pronbp and efgr and dd and tsh and a1c a nd rajinder Abdiel Serottianna SEBASTIAN [id number],S,on statin Rigo Pressley MD [id number],S, Abdiel Serot a [id number],S, n eg stress Abdiel Serota [id number],S, m ild Abdiel Serota [id number],C,mild Abdiel S gary SEBASTIAN [id number],C,neg stress Castillo rvey Serota [id number],C,n eg uarcr and pronbp and efgr and dd and tsh and a1c and iron Abdiel Serota [id number],S, Abdiel Serot a [id number],S, Abdiel Serot a [id number],B, Abdiel Serot a [id number],S, Abdiel Serot a [id number],B, Abdiel Serot a [id number],S, Abdiel Serot a [id number],N, Abdiel Serot a [id number],N,sx Abdiel hicks MD Cardiology Abdiel Pressley MD [...] Pressley MD [facility]: n eg stress Abdiel Pressley MD TeleHealth: m ild Abdiel Pressley MD :mild Abdiel Pressley MD :neg stress Abdiel Pressley MD :neg uarcr and pronb p and efgr and dd and tsh and a1c and iron Abdiel Pressley MD Cardiology Abdiel Pressley MD Cardiology Abdiel Pressley MD Cardiology Abdiel Pressley MD Cardiology bAdiel Pressley MD Cardiology Abdiel Pressley MD Cardiology Abdiel Pressley MD Cardiology Abdiel Pressley MD Cardiology:sx Abdiel Pressley MD Date Name LIPID PANEL Sleep Study Titratio n DLCO - 92623 FRC - 41213 FVC - 37494 Holter Monitor 24 Hr Sleep Study Home Troponin T D-DIMER, QUANTITATIV E DLCO - 09443 FRC - 30792 FVC - 29978 VITAMIN B12 Vitamin D, 25-Hydrox y IRON [...]
--- OUTSIDE RECORDS SUMMARY | 2024-09-15 21:15 | XMS_ITS | Clinical Summary ---
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
[2024-09-15 21:22] LABS: Strep Group A RT-PCR NOT DETECTED (Negative)
[2024-09-15 21:32] LABS: Influenza A QL RT-PCR Negative (Negative); Influenza B QL RT-PCR Negative (Negative); RSV RNA, RT-PCR Negative (Negative); SARS-CoV-2 RNA PCR Negative (Negative)
[2024-09-15 21:33] VITALS: BP 151/116; PULSE 110; RESP 24; O2SAT 96
--- NOTE | 2024-09-15 21:35 | ED_ITS ---
HPI - SOB/Dyspnea General Chief Complaint: Shortness of Breath/Dyspnea <Subhash Da Silva MD - Last Filed: 09/16/24 22:08> Stated Complaint: Difficulty breathing-throat closing <Subhash Da Silva MD - Last Filed: 09/16/24 22:08> Time Seen by Provider: 09/15/24 20:22 <Subhash Da Silva MD - Last Filed: 09/16/24 22:08> History of Present Illness HPI Narrative: 34-year-old male with history of HIV on Biktarvy. History of alcohol abuse. Today patient presents to the emergency room with chief complaint of sore throat and swelling in the back of his throat for few hours. Patient admits to drinking alcohol throughout the evening and woke up with a sensation of significant sore throat and choking sensation. Denies any allergens, no new medications. Does not take lisinopril. Is compliant with his Biktarvy, does not know his CD4 count but states his viral load is undetectable. Denies any chest pain, no history of similar events in the past. No lip swelling, no cough, fever or sore throat. He is tolerating secretions. States it is uncomfortable to swallow. No exposures to any possible allergens according to the patient. Did not have anything new to eat and did not take any different medications than usual. <Subhash Da Silva MD - Last Filed: 09/16/24 22:08> Related Data Home Medications: Home Medications ?Medication ?Instructions ?Recorded ?Confirmed ?Last Taken ?Type Biktarvy 1 tablet PO DAILY 09/07/23 09/07/23 09/05/23 History atorvastatin 10 mg tablet 10 mg PO DAILY 09/07/23 09/07/23 09/05/23 History <Subhash Da Silva MD - Last Filed: 09/16/24 22:08> Allergies/Adverse Reactions: Allergies Allergy/AdvReac Type Severity Reaction Status Date / Time No Known Allergies Allergy Verified 09/15/24 20:29 <Subhash Da Silva MD - Last Filed: 09/16/24 22:08> Review of Systems 2 Review of Systems: As reviewed above in HPI <Subhash Da Silva MD - Last Filed: 09/16/24 22:08> [facility] Social History Social History: Social History Smoking packs per day: 1 Smoking cigarettes per day: 20.0 Years smoked: 1 Smoking pack-years: 1.00 Smoking status: Former smoker Tobacco type: cigarettes Alcohol intake: current Drinks per week: 60 Substance use type: marijuana Last use: 09/06/2023 Do You Feel Safe in your Home?: Yes Lack of Transportation: No Lack of Food: Never True Current Housing: I Have Housing Concerned About Future Housing: No Difficulty Paying Gas/Electric Bills: No Difficulty Paying for Meds: No Currently Unemployed: No Education: High School Diploma/GED Difficulty w/ Childcare or Family Care: No Spiritual care concerns: No <Subhash Da Silva MD - Last Filed: 09/16/24 22:08> Exam 2 Narrative: GENERAL: [Well-appearing, well-nourished, and in no acute distress.] HEAD: [Normocephalic, atraumatic.] EYES: [PERRLA and EOMI.] ENT: Posterior oropharynx appears raw and erythematous but uvula is midline although mildly enlarged. No tonsillar exudates, no difficulty tolerating secretions. No anterior lip swelling superior or inferior. No base of tongue swelling, no brawny neck edema. No tenderness along the neck. No trismus. No pooling secretions. NECK: Supple. CHEST: [Clear to auscultation. No respiratory distress.] HEART: [Regular rate and rhythm]. No murmur heard. [Normal peripheral pulses.] ABDOMEN: [Soft, nondistended], [nontender], [No rigidity or guarding] EXTREMITIES: Normal range of motion. [No edema.] SKIN: Warm, dry, no rash. NEURO: [No focal deficits]. Alert and oriented [x3.] PSYCH: [Normal mood and affect.] <Subhash Da Silva MD - Last Filed: 09/16/24 22:08> Course Vital Signs Vital signs: Vital Signs Pulse Rate 120 H 09/15/24 20:17 Respiratory Rate 20 09/15/24 20:17 Blood Pressure 145/111 H 09/15/24 20:17 Pulse Oximetry 97 09/15/24 20:17 Oxygen Delivery Room Air 09/15/24 20:17 Temperature 36.9 C 09/16/24 00:00 Pulse Rate 109 H 09/16/24 00:00 Respiratory Rate 20 09/16/24 00:00 Blood Pressure 166/113 H 09/16/24 00:00 Pulse Oximetry 98 09/16/24 00:00 Oxygen Delivery Room Air 09/15/24 20:32 <Subhash Da Silva MD - Last Filed: 09/16/24 22:08> Vital Signs Pulse Rate 120 H 09/15/24 20:17 Respiratory Rate 20 09/15/24 20:17 Blood Pressure 145/111 H 09/15/24 20:17 Pulse Oximetry 97 09/15/24 20:17 Oxygen Delivery Room Air 09/15/24 20:17 Temperature 36.9 C 09/16/24 00:00 Pulse Rate 109 H 09/16/24 00:00 Respiratory Rate 20 09/16/24 00:00 Blood Pressure 166/113 H 09/16/24 00:00 Pulse Oximetry 98 09/16/24 00:00 Oxygen Delivery Room Air 09/15/24 20:32 <Freddie Mcdermott MD - Last Filed: 09/16/24 00:37> MDM - SOB/Dyspnea MDM Narrative Medical decision making narrative: 34-year-old male presenting with sore throat and painful swallowing for the last several hours. He states he was drinking on off throughout the evening and woke up with a choking sensation although sudden. Has not any acute distress. Mildly tachycardic in triage but normal blood pressure, normal respiratory effort, no hypoxia. Clear breath sounds throughout, no abdominal pain, nausea, vomiting, diarrhea or any other signs of potential allergic reaction or anaphylaxis. No new allergy exposures a new new medications. Does not take any lisinopril. Patient has a history of HIV and compliant with Biktarvy. Examination shows erythematous posterior oropharynx and mildly enlarged uvula but no tonsillar erythema or exudates, no trismus, no pooling secretions, no lip swelling, no base of tongue swelling. No present suspicion for anaphylaxis. Likely patient has some esophagitis/pharyngitis with low suspicion for pharyngeal or retropharyngeal/peritonsillar abscess although he is high risk with his HIV status. Will treat his pharyngitis symptoms with a dose of dexamethasone, laboratory studies were obtained as well as CT scan of the neck with contrast. Patient was given a fluid bolus and Zofran. Strep and viral panel swabs obtained. Patient was re-evaluated after dexamethasone with improvement in his throat pain. Laboratory studies show a minor leukocytosis, CT scan is pending. Patient signed out to oncoming ER physician Dr. Mcdermott pending CT scan read and likely discharge home after completion of workup. <Subhash Da Silva MD - Last Filed: 09/16/24 22:08> 34-year-old male presenting with sore throat and painful swallowing for the last several hours. He states he was drinking on off throughout the evening and woke up with a choking sensation although sudden. Has not any acute distress. Mildly tachycardic in triage but normal blood pressure, normal respiratory effort, no hypoxia. Clear breath sounds throughout, no abdominal pain, nausea, vomiting, diarrhea or any other signs of potential allergic reaction or anaphylaxis. No new allergy exposures a new new medications. Does not take any lisinopril. Patient has a history of HIV and compliant with Biktarvy. Examination shows erythematous posterior oropharynx and mildly enlarged uvula but no tonsillar erythema or exudates, no trismus, no pooling secretions, no lip swelling, no base of tongue swelling. No present suspicion for anaphylaxis. Likely patient has some esophagitis/pharyngitis with low suspicion for pharyngeal or retropharyngeal/peritonsillar abscess although he is high risk with his HIV status. Will treat his pharyngitis symptoms with a dose of dexamethasone, laboratory studies were obtained as well as CT scan of the neck with contrast. Patient was given a fluid bolus and Zofran. Strep and viral panel swabs obtained. Patient was re-evaluated after dexamethasone with improvement in his throat pain. Laboratory studies show a minor leukocytosis, CT scan is pending. Patient signed out to oncoming ER physician Dr. Mcdermott pending CT scan read and likely discharge home after completion of workup. CT scan showed no acute abnormality Patient be discharged home on oral steroids <Freddie Mcdermott MD - Last Filed: 09/16/24 00:37> Medical Records Attestation: I reviewed the patient's medical records. <Subhash Da Silva MD - Last Filed: 09/16/24 22:08> Lab Data Attestation: I reviewed the patient's lab results. <Subhash Da Silva MD - Last Filed: 09/16/24 22:08> Result diagrams: 09/15/24 20:41 09/15/24 20:41 <Subhash Da Silva MD - Last Filed: 09/16/24 22:08> Labs: Lab Results 09/15/24 09/15/24 Range/Units 20:41 20:55 WBC 11.9 H (4.5-10.0) K/mm3 RBC 5.31 (4.6-6.20) M/mm3 Hgb 16.2 (14.0-18.0) g/dL Hct 45.7 (42.0-52.0) % MCV 86.1 (80-100) fl MCH 30.5 (26-34) pg MCHC 35.4 (32-36) g/dl RDW 11.8 (11.5-14.5) % Plt Count 330 (150-375) k/mm3 MPV 8.8 (7.4-10.4) fl Immature Gran % (Auto) 0.4 (0-0.5) % Neut % (Auto) 78.7 H (45.5-73.1) % Lymph % (Auto) 17.2 L (18.3-44.2) % Zavala % (Auto) 2.9 (2.6-8.5) % Eos % (Auto) 0.1 (0-4.4) % Baso % (Auto) 0.7 (0.2-1.2) % Lymph # (Auto) 2.05 (0.9-3.2) K/mm3 Zavala # (Auto) 0.4 (0.1-0.6) K/mm3 Eos # (Auto) 0.0 (0-0.3) K/mm3 Baso # (Auto) 0.1 (0.0-0.1) K/mm3 Abs Immat Gran (auto) 0.05 H (0.00-0.031) K/mm3 Absolute Neuts (auto) 9.4 H (1.3-6.7) K/mm3 Absolute Nucleated RBC 0.000 (0.0-0.012) K/mm3 Nucleated RBC % 0.0 (0.0-0.2) % Sodium 140 (137-145) mmol/L Potassium 3.9 (3.4-5.0) mmol/L Chloride 100 (98-107) mmol/L Carbon Dioxide 24 (22-30) mmol/L Anion Gap 16 H (4-12) mmol/L BUN 17 (9-20) mg/dL Creatinine 1.07 (0.7-1.3) mg/dL Estim Creat Clear Calc 99 ml/min Estimated GFR > 60 (59 - ) Glucose 137 H (65-110) mg/dL Calcium 8.7 (8.4-10.2) mg/dL Magnesium 2.1 (1.6-2.3) mg/dL Total Bilirubin 1.2 (0.2-1.3) mg/dL AST 53 (17-59) U/L ALT 81 H (6-50) U/L Alkaline Phosphatase 92 (38-126) U/L Total Protein 9.0 H (6.3-8.2) g/dL Albumin 5.1 (3.5-5.1) g/dL Influenza A (RT-PCR) Negative (Negative) Influenza B (RT-PCR) Negative (Negative) RSV (RT-PCR) Negative (Negative) SARS-CoV-2 RNA (RT-PCR) Negative (Negative) Group A Strep (PCR) Not detected (Negative) <Subhash Da Silva MD - Last Filed: 09/16/24 22:08> Lab Results 09/15/24 09/15/24 Range/Units 20:41 20:55 WBC 11.9 H (4.5-10.0) K/mm3 RBC 5.31 (4.6-6.20) M/mm3 Hgb 16.2 (14.0-18.0) g/dL Hct 45.7 (42.0-52.0) % MCV 86.1 (80-100) fl MCH 30.5 (26-34) pg MCHC 35.4 (32-36) g/dl RDW 11.8 (11.5-14.5) % Plt Count 330 (150-375) k/mm3 MPV 8.8 (7.4-10.4) fl Immature Gran % (Auto) 0.4 (0-0.5) % Neut % (Auto) 78.7 H (45.5-73.1) % Lymph % (Auto) 17.2 L (18.3-44.2) % Zavala % (Auto) 2.9 (2.6-8.5) % Eos % (Auto) 0.1 (0-4.4) % Baso % (Auto) 0.7 (0.2-1.2) % Lymph # (Auto) 2.05 (0.9-3.2) K/mm3 Zavala # (Auto) 0.4 (0.1-0.6) K/mm3 Eos # (Auto) 0.0 (0-0.3) K/mm3 Baso # (Auto) 0.1 (0.0-0.1) K/mm3 Abs Immat Gran (auto) 0.05 H (0.00-0.031) K/mm3 Absolute Neuts (auto) 9.4 H (1.3-6.7) K/mm3 Absolute Nucleated RBC 0.000 (0.0-0.012) K/mm3 Nucleated RBC % 0.0 (0.0-0.2) % Sodium 140 (137-145) mmol/L Potassium 3.9 (3.4-5.0) mmol/L Chloride 100 (98-107) mmol/L Carbon Dioxide 24 (22-30) mmol/L Anion Gap 16 H (4-12) mmol/L BUN 17 (9-20) mg/dL Creatinine 1.07 (0.7-1.3) mg/dL Estim Creat Clear Calc 99 ml/min Estimated GFR > 60 (59 - ) Glucose 137 H (65-110) mg/dL Calcium 8.7 (8.4-10.2) mg/dL Magnesium 2.1 (1.6-2.3) mg/dL Total Bilirubin 1.2 (0.2-1.3) mg/dL AST 53 (17-59) U/L ALT 81 H (6-50) U/L Alkaline Phosphatase 92 (38-126) U/L Total Protein 9.0 H (6.3-8.2) g/dL Albumin 5.1 (3.5-5.1) g/dL Influenza A (RT-PCR) Negative (Negative) Influenza B (RT-PCR) Negative (Negative) RSV (RT-PCR) Negative (Negative) SARS-CoV-2 RNA (RT-PCR) Negative (Negative) Group A Strep (PCR) Not detected (Negative) <Freddie Mcdermott MD - Last Filed: 09/16/24 00:37> Imaging Data Attestation: I personally reviewed and interpreted this imaging study as follows: < Subhash Da Silva MD - Last Filed: 09/16/24 22:08> My impression: Impressions Soft Tissue Neck CT 09/15/24 21:57 IMPRESSION: Uvular edema. Mild bilateral palatine tonsil enlargement. No abscess. Groundglass opacities in the upper lungs, correlate with respiratory symptoms. Consider edema, infection, or hypersensitivity in the differential. <Subhash Da Silva MD - Last Filed: 09/16/24 22:08> Discharge Plan Discharge Clinical Impression: Pharyngitis, HIV (human immunodeficiency virus infection), Alcohol abuse, Acute sore throat <Subhash Da Silva MD - Last Filed: 09/16/24 22:08> Patient Disposition: Home <Subhash Da Silva MD - Last Filed: 09/16/24 22:08> Condition: Stable <Subhash Da Silva MD - Last Filed: 09/16/24 22:08> Instructions: Antibiotic Form, Pharyngitis (ED) <Subhash Da Silva MD - Last Filed: 09/16/24 22:08> Patient Language: Serbian <Subhash Da Silva MD - Last Filed: 09/16/24 22:08> Prescriptions: New prednisone 20 mg tablet 40 mg PO DAILY 5 Days Qty: 10 0RF No Action atorvastatin 10 mg Tablet 10 mg PO DAILY Biktarvy 1 tablet tablet 1 tablet PO DAILY <Subhash Da Silva MD - Last Filed: 09/16/24 22:08> Follow-up/Referrals: Francesco Bashir MD [Primary Care Provider] - <Subhash Da Silva MD - Last Filed: 09/16/24 22:08> Time of Disposition: 00:37 <Subhash Da Silva MD - Last Filed: 09/16/24 22:08> 00:37 <Freddie Mcdermott MD - Last Filed: 09/16/24 00:37>
[2024-09-15 21:45] VITALS: BP 162/111; PULSE 114; RESP 22; O2SAT 93
[2024-09-16] VITALS: BP 166/113; PULSE 109; RESP 20; TEMP 36.9; O2SAT 98
== END 2024-09-16 01:18 | disposition home or self-care (01) ==
PROVIDERS: Emergency Provider Student in an Organized Health Care Education/Training Program; PCP Emergency Medicine
DX: J02.9 Acute pharyngitis, unspecified (principal); Z21 Asymptomatic human immunodeficiency virus [HIV] infection status; F10.10 Alcohol abuse, uncomplicated; Y90.9 Presence of alcohol in blood, level not specified; Z20.822 Contact with and (suspected) exposure to COVID-19; Z87.891 Personal history of nicotine dependence; R94.31 Abnormal electrocardiogram [ECG] [EKG]; R00.0 Tachycardia, unspecified; Z79.899 Other long term (current) drug therapy
CPT/HCPCS: 36415; 70491; 80053; 83735; 85025; 87637; 87651; 93005; 96361; 96374; 96375; 99284; J1100; J2405; J7120; Q9967